=== PATIENT | female | born 1945 | race Caucasian/White ===

== ENCOUNTER 2023-11-11 12:28 | Observation (INO) ==
--- NOTE | 2023-11-11 12:51 | ED.PDOC ---
General ED Provider: Dr. PABLO MAS MD Chief Complaint: Urinary Problem Stated Complaint: Patient with a history of hypertension complains of acute outside the past several days of frequency, urgency, urinary incontinence, confusion family further states that patient has had increased confusion the past week. Patient was recently placed on rehabilitation facility for 2 weeks with had no improvement after arrival to home. Patient denies headache, chest pain, diaphoresis, palpitations, nausea, vomiting, diarrhea. Patient is active level confined to wheelchair due to severe scoliosis Time Seen by Provider: 11/11/23 12:47 Mode of Arrival: Wheelchair Information Source: Patient and Family Primary Care Provider: MACO RAO Nursing and Triage Documentation Reviewed and Agree: Yes What is Opioid Naive?: *Opioid Naive implies the patient is not already taking opioids or not chronically receiving opioids on a daily basis. *PRN dosing is not "usually" associated with tolerance. *Patients are at higher risk of over-sedation and aspiration. What is Opioid Tolerant?: *Opioid Tolerance implies less than the expected response to an opioid. *Acquired tolerance is defined by the patient taking 60mg of oral morphine daily (or equianalgesic dose of another opioid) for 1 week or more. *Often associated with chronic pain. *May take more than usual dose to achieve desired pain control. 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) Stroke I63.9 - Cerebral infarction, unspecified (ICD-10) Female Reproductive History Menstrual Hx Hysterectomy: No Hx Tubal Ligation: No Physical Exam Physical Exam Appearance: Reports Well-appearing Ill-appearing: None Pain Distress: None Eyes: Reports SHERMAN, EOMI and Conjunctiva clear ENT: Reports Ears normal, Nose normal and Oropharynx normal Neck: Supple Respiratory: Reports Airway patent, Breath sounds clear and Breath sounds equal Cardiovascular: Reports RRR, Pulses normal, No rub and No murmur GI/: Reports Soft, Nontender, No masses and Bowel sounds normal Musculoskeletal: Reports Normal strength, ROM intact, No edema and No calf tenderness Skin: Reports Warm, Dry and Normal color Neurological: Reports Sensation intact, Motor intact, Reflexes intact, Cranial nerves intact, Alert and Oriented (Oriented x 2) Psychiatric: Reports Mood appropriate and Other (Patient is a very flat affect, appears withdrawn.) Critical Care Note Critical Care Note Total Critical Care Time (mins): 0 Course Course 11/11/23 13:20 11/11/23 13:20 Orders, Labs, Meds: Lab Review 11/11/23 13:20 WBC 9.42 RBC 4.55 Hgb 14.3 Hct 43.1 MCV 94.7 MCH 31.4 H MCHC 33.2 RDW Coeff of Manolo 13.8 Plt Count 156 Immature Gran % (Auto) 0.2 Neut % (Auto) 74.3 Lymph % (Auto) 17.3 [place] % (Auto) 7.4 Eos % (Auto) 0.5 Baso % (Auto) 0.3 Neut # (Auto) 7.0 H Lymph # (Auto) 1.6 [place] # (Auto) 0.7 Eos # (Auto) 0.1 Baso # (Auto) 0.0 Immature Gran # (Auto) 0.0 Sodium 141.9 Potassium 3.66 Chloride 104.6 Carbon Dioxide 29.8 Anion Gap 11.16 BUN 11.9 Creatinine 0.79 Estimated GFR (MDRD) 70.00 BUN/Creatinine Ratio 15.06 Glucose 132.7 H Calcium 9.45 Magnesium 1.74 Total Bilirubin 0.80 AST 49.8 H ALT 31.6 Alkaline Phosphatase 100.7 Troponin I < 0.012 Total Protein 7.59 Albumin 4.51 Globulin 3.08 Albumin/Globulin Ratio 1.46 Urine Color Yellow Urine Clarity Clear Urine pH 7.0 Ur Specific [place] 1.020 Urine Protein 1+ H Urine Glucose (UA) Negative Urine Ketones 1+ H Urine Blood Trace-intact H Urine Nitrite Negative Urine Bilirubin 1+ H Urine Urobilinogen 0.2 Ur Leukocyte Esterase 2+ H Urine Microscopic RBC 0-2 Urine Microscopic WBC 5-10 Ur Squamous Epith Cells 2-5 SARS CoV-2 RNA Rapid LINDSAY Negative Orders Category Date Time Status EKG-(ED ONLY) Stat CARDIO 11/11/23 12:53 Completed Bicycle Repair Technician [ED GLOST TILE SHADER APPLIED] .ONCE EMERGENCY 11/11/23 12:53 Active BLOOD CULTURE (ED ONLY) Stat LAB 11/11/23 14:02 Ordered CBC W/ AUTO DIFF Stat LAB 11/11/23 13:20 Completed CMP [COMPREHENSIVE METABOLIC PANEL] Stat LAB 11/11/23 13:20 Completed COVID [SARS COV-2 RNA RAPID LINDSAY] Stat LAB 11/11/23 13:20 Completed MAGNESIUM Stat LAB 11/11/23 13:20 Completed TROPONIN I Stat LAB 11/11/23 13:20 Completed URINALYSIS C & S IF INDICATED Stat LAB 11/11/23 13:20 Completed URINE CULTURE Stat LAB 11/11/23 13:36 Received Ceftriaxone/D5w 1 gm Premix [Rocephin 1 gm/50 ml D5w] Meds 11/11/23 13:37 Discontinued 1 gm in 50 ml IV ONCE Sodium Chloride 0.9% [Sodium Chloride] 1,000 ml Meds 11/11/23 12:51 Discontinued IV 500 mls/hr CHEST, 1V AP ONLY Stat RADS 11/11/23 12:[address] HEAD W/O CONTRAST Stat RADS 11/11/23 12:51 Completed Medications Discontinued Medications Generic Name Dose Route Start Last Admin Trade Name Freq PRN Reason Stop Dose Admin Sodium Chloride 1,000 mls @ 500 mls/hr 11/11/23 12:51 11/11/23 13:42 Sodium Chloride IV 11/11/23 14:50 500 mls/hr .Q2H ONE Administration CEFTRIAXONE/D5W 1 GM PREMIX 1 gm in 50 mls @ 100 mls/hr 11/11/23 13:37 Rocephin 1 Gm/50 Ml D5w IV 11/11/23 14:06 ONCE ONE Vital Signs: Temp Pulse Resp BP Pulse Ox 11/11/23 12:44 98.4 F 97 16 122/75 96 Physician Progress Note: History obtained from the patient was her family friend who is recent been released from a rehabilitation facility past 2 weeks has had no improvement has had confusion past week and onset of urinary frequency, urgency and incontinence. No history of fall, injury, headache, dizziness, chest pain, nausea, vomiting, fever. Patient given IV fluids with saline 1 L at 500 mill/hour Laboratory data CBC and CMP have been reviewed and often normal Urinalysis ketones 1+, leukocyte esterase 2+, WBCs 5-10. 1340-EKG interpretation by myself consistent with normal sinus rhythm rate of 84 negative normocephalic S wave changes noted inferiorly. There is no ectopy there is no prolongation of CO QT interval. After 2 sets of blood cultures patient administered Rocephin 1 g IV piggyback Portable chest x-ray interpretation by radiologist as no acute cardiopulmonary process The head CT scan without intravenous contrast interpretation per radiologist shows no acute intracranial abnormality Differential diagnosis: 1) confusion 2) urine tract infection 3) dehydration Discussed with Aneta Maldonado the hospitalist at 1500 For inpatient admission Discharge Plan Discharge Patient Disposition: ADMITTED INPATIENT Discharge Problem: Acute alteration in mental status, Acute dehydration Urinary tract infection Qualifiers: Urinary tract infection type: acute cystitis Hematuria presence: without hematuria Qualified Code(s): N30.00 - Acute cystitis without hematuria Prescriptions: No Action amlodipine 5 mg tablet 5 mg PO DAILY Patient Comments: TAKE 1 TABLET BY MOUTH EVERY DAY atorvastatin 40 mg tablet 40 mg PO BEDTIME Patient Comments: TAKE 1 TABLET BY MOUTH EVERY NIGHT AT BEDTIME hydrocodone-acetaminophen 7.5-325 mg tablet 1 tab PO DAILY PRN (Reason: pain) Patient Comments: TAKE 1 TABLET BY MOUTH EVERY DAY NEEDED montelukast 10 mg tablet 10 mg PO QPM Patient Comments: TAKE 1 TABLET BY MOUTH EVERY NIGHT pregabalin 100 mg capsule 100 mg PO TID Patient Comments: TAKE 1 CAPSULE BY MOUTH THREE TIMES DAILY sertraline 25 mg tablet 25 mg PO DAILY Patient Comments: TAKE 1 TABLET BY MOUTH DAILY Did you review [place] [facility] NURSE for ALL controlled substances?: Not Applicable ED Provider: PABLO MAS Condition: Stable Yang Coma Scale Yang Coma Scale Response Scores: Best Response = 15 Comatose Client = 8 or Less Totally Unresponsive = 3
[2023-11-11 13:23] LABS: BASOPHILS % (AUTO) 0.3 % (0.0-3.0); EOSINOPHILS # (AUTO) 0.1 K/ul (0.0-0.7); EOSINOPHILS % (AUTO) 0.5 % (0.0-7.0); HEMATOCRIT 43.1 % (37.0-47.0); HEMOGLOBIN 14.3 g/dl (12.0-16.0); IMMATURE GRANULOCYTE % (AUTO) 0.2 % (0.0-5.0); LYMPHOCYTES # (AUTO) 1.6 K/uL (0.60-3.4); LYMPHOCYTES % (AUTO) 17.3 (10.0-50.0); MEAN CORPUSCULAR HEMOGLOBIN 31.4 pg (27.0-31.0); MEAN CORPUSCULAR HGB CONC 33.2 (31.8-35.4); MEAN CORPUSCULAR VOLUME 94.7 fl (81.0-99.0); MONOCYTES # (AUTO) 0.7 K/uL (0.4-2.0); MONOCYTES % (AUTO) 7.4 (0-10); NEUTROPHILS % (AUTO) 74.3 % (42.2-75.2); PLATELET COUNT 156 10^3/uL (140-440); RDW COEFFICIENT OF VARIATION 13.8 % (11.6-14.8); RED BLOOD COUNT 4.55 10^6/ul (4.20-5.40); WHITE BLOOD COUNT 9.42 K/ul (4.6-10.2)
[2023-11-11 13:26] LABS: BILIRUBIN,URINE 1+ (NEGATIVE); CLARITY,URINE Clear (CLEAR); COLOR,URINE Yellow (YELLOW); GLUCOSE, URINE (UA) Negative (NEGATIVE); KETONES,URINE 1+ (NEGATIVE); LEUKOCYTE ESTERASE ,URINE 2+ (NEGATIVE); NITRITE,URINE Negative (NEGATIVE); PROTEIN,URINE 1+ (NEGATIVE); URINE, BLOOD Trace-intact (NEGATIVE); UROBILINOGEN,URINE 0.2 (0.2)
[2023-11-11 13:35] LABS: ALANINE AMINOTRANSFERASE 31.6 U/L (0-35); ALBUMIN 4.51 g/dL (3.5-5.0); ALKALINE PHOSPHATASE 100.7 U/L (53-141); ASPARTATE AMINO TRANSFERASE 49.8 U/L (14-36); BILIRUBIN,TOTAL 0.8 mg/dL (0.2-1.3); BLOOD UREA NITROGEN 11.9 mg/dL (7-17); CALCIUM 9.45 mg/dL (8.4-10.2); CARBON DIOXIDE 29.8 mmol/L (22-30.0); CHLORIDE 104.6 mmol/L (98-107); CREATININE 0.79 mg/dL (0.60-1.30); GLUCOSE 132.7 mg/dL (74-106); MAGNESIUM 1.74 mg/dL (1.6-2.3); POTASSIUM 3.66 mmol/L (3.5-5.1); SODIUM 141.9 mmol/L (134.5-145); TOTAL PROTEIN 7.59 g/dL (6.3-8.2); URINE RBC, MICROSCOPIC 0-2 (0-2)
[2023-11-11 13:37] LABS: SARS COV-2 RNA RAPID NAAT NEGATIVE (NEGATIVE)
[2023-11-11] MEDS: SODIUM CHLORIDE 1,000 ML IV ONE (13:42)
--- NOTE | 2023-11-11 14:28 | CT ---
EXAM: CT BRAIN HISTORY: Confusion TECHNIQUE: CT brain without intravenous contrast. 5-mm axial sections with Reformations. COMPARISON: None FINDINGS: The brain was unremarkable for age without evidence of hemorrhage or large vessel distribution rece nt ischemic infarction. There is no suggestion of acute hydrocephalus or subdural fluid collection. No mass or mass effect. Cranium has no acute finding. Mastoid processes are aerated. The visualiz ed paranasal sinuses are clear. IMPRESSION: No acute intracranial process. - - - - - All CT scans are performed using dose optimization techniques as appropriate to the performed exam an d include at least one of the following: Automated exposure control, adjustment of the mA and/or kV according t o size, and the use of iterative reconstruction technique.
--- NOTE | 2023-11-11 14:34 | DI ---
EXAMINATION: AP CHEST RADIOGRAPH. HISTORY: Cough COMPARISON: None available. FINDINGS: A right apical calcified granuloma is noted.No focal consolidation, pleural effusion or pneumothorax is identified. The cardiomediastinal silhouette is within normal limits. Thoracolumbar dextroscoliosis is noted. IMPRESSION: No acute cardiopulmonary findings.
[2023-11-11] MEDS: ROCEPHIN 1 GM/50 ML D5W 1 GM/50 ML BAG IV ONE (15:08)
[2023-11-11 16:12] VITALS: BMI 19.9
[2023-11-11] MEDS ORDERED: TYLENOL PO PRN (16:26)
[2023-11-11] MEDS: ZOFRAN 4 MG/2 ML IVP PRN (19:38)
[2023-11-11] MEDS: LIPITOR PO SCH (20:08)
[2023-11-11] MEDS: LYRICA PO SCH (20:08)
[2023-11-12] MEDS: NORCO 7.5-325 PO PRN (01:18)
[2023-11-12 05:10] LABS: BASOPHILS % (AUTO) 0.4 % (0.0-3.0); EOSINOPHILS # (AUTO) 0.2 K/ul (0.0-0.7); EOSINOPHILS % (AUTO) 3.4 % (0.0-7.0); HEMATOCRIT 34.7 % (37.0-47.0); HEMOGLOBIN 11.5 g/dl (12.0-16.0); IMMATURE GRANULOCYTE % (AUTO) 0.3 % (0.0-5.0); LYMPHOCYTES # (AUTO) 2.7 K/uL (0.60-3.4); MEAN CORPUSCULAR HEMOGLOBIN 31.6 pg (27.0-31.0); MEAN CORPUSCULAR HGB CONC 33.1 (31.8-35.4); MEAN CORPUSCULAR VOLUME 95.3 fl (81.0-99.0); MONOCYTES # (AUTO) 0.7 K/uL (0.4-2.0); MONOCYTES % (AUTO) 9.6 (0-10); NEUTROPHILS # (AUTO) 3.4 K/ul (2.0-6.9); NEUTROPHILS % (AUTO) 48.3 % (42.2-75.2); PLATELET COUNT 128 10^3/uL (140-440); RED BLOOD COUNT 3.64 10^6/ul (4.20-5.40)
[2023-11-12 05:22] LABS: ALANINE AMINOTRANSFERASE 23.3 U/L (0-35); ALBUMIN 3.28 g/dL (3.5-5.0); ALKALINE PHOSPHATASE 80.2 U/L (53-141); ASPARTATE AMINO TRANSFERASE 37.6 U/L (14-36); BILIRUBIN,TOTAL 0.51 mg/dL (0.2-1.3); BLOOD UREA NITROGEN 9.8 mg/dL (7-17); CALCIUM 8.49 mg/dL (8.4-10.2); CARBON DIOXIDE 30.5 mmol/L (22-30.0); CHLORIDE 107.6 mmol/L (98-107); CREATININE 0.78 mg/dL (0.60-1.30); GLUCOSE 88.6 mg/dL (74-106); POTASSIUM 3.17 mmol/L (3.5-5.1); SODIUM 140.8 mmol/L (134.5-145); TOTAL PROTEIN 5.8 g/dL (6.3-8.2)
[2023-11-12] MEDS: ZOLOFT PO SCH (08:55)
[2023-11-12] MEDS: ASPIRIN EC PO SCH (08:55)
[2023-11-12] MEDS: K-DUR PO ONE (08:55)
[2023-11-12] MEDS: ROCEPHIN 1 GM/50 ML D5W 1 GM/50 ML BAG IV SCH (08:56)
[2023-11-12 09:33] LABS: BILIRUBIN,URINE Negative (NEGATIVE); CLARITY,URINE Clear (CLEAR); COLOR,URINE Yellow (YELLOW); GLUCOSE, URINE (UA) Negative (NEGATIVE); KETONES,URINE Negative (NEGATIVE); LEUKOCYTE ESTERASE ,URINE Negative (NEGATIVE); NITRITE,URINE Negative (NEGATIVE); PH,URINE 6.5 (5-9); PROTEIN,URINE Negative (NEGATIVE); URINE, BLOOD Negative (NEGATIVE); UROBILINOGEN,URINE 0.2 (0.2)
--- NOTE | 2023-11-12 09:39 | PCM ---
Date of Service Date Seen by Provider: 11/12/23 Time Seen by Provider: 09:00 Admit Day/Time Admission Date: 11/11/23 Admission Time: 15:03 Reason for Admission Chief Complaint: ALTERED MENTAL STATUS, DEHYDRATION, UTI Hospital Provider Hospital Provider: KEEGAN REYES, [facility] Primary Care Physician Primary Care Physician: MACO RAO History of Present Illness History of Present Illness: 78 yo female presented to the ER with altered mental status and UTI symptoms. Patient was recently discharge from local SNF and has been at home. Per family report to ER staff patient was confused at home. Patient reports that she has had urinary frequency and some minor aches and pains but no other symptoms. Was nauseated during the night last night and required zofran. Denies fever, chills, urinary urgency or dysuria, or abdominal pain. UA was suspicious for UTI. Patient was started on rocephin and admitted to med/surg observation. This AM no WBC count elevation and urine culture showed suspicious for contaminant. Patient is A&Ox4. Case Discussed With Case Discussed With: Patient's case was discussed with the ER Physicians, Dr. Murphy. 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 (ICD-10) Stroke I63.9 - Cerebral infarction, unspecified (ICD-10) Family History Mother Colon cancer Social History Smoking and tobacco status: Never smoker Allergies Allergies Allergy/AdvReac Type Severity Reaction Status Date / Time No Known Allergies Allergy Unverified 02/20/23 13:23 Current Medications Home Medications atorvastatin 40 mg tablet 40 mg PO BEDTIME 02/20/23 [History Confirmed 11/11/23 Last Taken Unknown] hydrocodone 7.5 mg-acetaminophen 325 mg tablet 1 tab PO DAILY PRN pain 02/20/23 [History Confirmed 11/11/23 Last Taken Unknown] montelukast 10 mg tablet 10 mg PO QPM 02/20/23 [History Confirmed 11/11/23 Last Taken Unknown] pregabalin 100 mg capsule 100 mg PO TID 02/20/23 [History Confirmed 11/11/23 Last Taken Unknown] sertraline 25 mg tablet 25 mg PO DAILY 02/20/23 [History Confirmed 11/11/23 Last Taken Unknown] aspirin 81 mg tablet,delayed release (Hope Low Dose Aspirin) 81 mg PO DAILY 11/11/23 [History Confirmed 11/11/23 Last Taken Unknown] esomeprazole magnesium 40 mg capsule,delayed release 40 mg PO DAILY 11/11/23 [History Confirmed 11/11/23 Last Taken Unknown] Home Acetaminophen (Acetaminophen 325 Mg Tablet) 650 mg PO Q4H PRN PRN Reason: Mild Pain Hydrocodone Bitart/Acetaminophen (Hydrocodone Bit/Acetaminophen 7.5/325 Mg Tablet) 1 tab PO DAILY PRN PRN Reason: MODERATE PAIN Last Admin: 11/12/23 01:18 Dose: 1 tab Aspirin (Aspirin 81 Mg Tablet.) 81 mg PO DAILY [facility] Last Admin: 11/12/23 08:55 Dose: 81 mg Atorvastatin Calcium (Atorvastatin Calcium 20 Mg Tablet) 40 mg PO BEDTIME [facility] Last Admin: 11/11/23 20:08 Dose: 40 mg CEFTRIAXONE/D5W 1 GM PREMIX (Rocephin 1 Gm/50 Ml D5w) 1 gm in 50 mls @ 100 mls/hr IV DAILY [facility] Stop: 11/15/23 08:59 Last Admin: 11/12/23 08:56 Dose: 100 mls/hr Lactated Ringer's (Lactated Ringers) 1,000 mls @ 75 mls/hr IV .[id number] [facility] Ondansetron HCl (Ondansetron Hcl/Pf 4 Mg/2 Ml Sdv) 4 mg IVP Q6H PRN PRN Reason: Nausea / Vomiting Last Admin: 11/11/23 19:38 Dose: 4 mg Pregabalin (Pregabalin 50 Mg Capsule) 100 mg PO TID [facility] Last Admin: 11/12/23 08:55 Dose: 100 mg Sertraline HCl (Sertraline Hcl 50 Mg Tablet) 25 mg PO DAILY [facility] Last Admin: 11/12/23 08:55 Dose: 25 mg Sodium Chloride (0.9% Sodium Chloride 10 Ml Disp.Syrin) 1 syr IVF Q8HR [facility] Last Admin: 11/12/23 12:56 Dose: 1 syr Discontinued Medications Sodium Chloride (Sodium Chloride) 1,000 mls @ 500 mls/hr IV .Q2H ONE Stop: 11/11/23 14:50 Last Infusion: 11/11/23 16:00 Dose: Infused CEFTRIAXONE/D5W 1 GM PREMIX (Rocephin 1 Gm/50 Ml D5w) 1 gm in 50 mls @ 100 mls/hr IV ONCE ONE Stop: 11/11/23 14:06 Last Admin: 11/11/23 15:08 Dose: 100 mls/hr Potassium Chloride (Potassium Chloride 20 Meq Tab) 40 meq PO ONCE ONE Stop: 11/12/23 08:33 Last Admin: 11/12/23 08:55 Dose: 40 meq Opioid Naive vs. Tolerant Does Patient Take Opioids?: Yes Is Patient Opioid Naive?: No What is Opioid Naive?: *Opioid Naive implies the patient is not already taking opioids or not chronically receiving opioids on a daily basis. *PRN dosing is not "usually" associated with tolerance. *Patients are at higher risk of over-sedation and aspiration. Is Patient Opioid Tolerant?: No What is Opioid Tolerant?: *Opioid Tolerance implies less than the expected response to an opioid. *Acquired tolerance is defined by the patient taking 60mg of oral morphine daily (or equianalgesic dose of another opioid) for 1 week or more. *Often associated with chronic pain. *May take more than usual dose to achieve desired pain control. Review of Systems Constitutional: Reports No symptoms Head: Reports Normocephalic Eyes: Reports No symptoms Ears: Reports No symptoms Nose: Reports No symptoms Mouth: Reports No symptoms Throat: Reports No symptoms Cardiovascular: Reports No symptoms Respiratory: Reports No symptoms Gastrointestinal: Reports Nausea Genitourinary: Reports Frequency Musculoskeletal: Reports No symptoms Endocrine: Reports No symptoms Hematology: Reports No symptoms Immunology: Reports No symptoms Neurological: Reports No symptoms Psychiatric: Reports No symptoms Physical examination Most Recent Vital Signs: Most Recent Vital Signs Temperature 97.7 F 11/12/23 05:06 Temperature Source Temporal Artery Scan 11/12/23 05:06 Temperature Source Infrared 11/11/23 12:44 Pulse Rate 67 11/12/23 05:06 Respiratory Rate 18 11/12/23 05:06 Blood Pressure 156/69 H 11/12/23 05:06 Blood Pressure Mean 98 11/12/23 05:06 Blood Pressure Right Arm 181/80 11/11/23 15:58 Blood Pressure Location Left Arm 11/12/23 05:06 Blood Pressure Position Sitting 11/11/23 21:06 O2 Sat by Pulse Oximetry 95 11/12/23 05:06 Oxygen Delivery Method Room Air 11/12/23 08:00 Height 5 ft 4 in 11/11/23 15:58 Weight 116 lb 3 oz 11/11/23 15:58 Telemetry Type Remote Telemetry 11/12/23 07:00 Telemetry Monitoring Continues 11/12/23 07:00 Telemetry Heart Rate 84 11/12/23 07:00 EKG MD Interval 0.15 11/12/23 07:00 EKG QRS Interval 0.04 L 11/12/23 07:00 Telemetry Strip Reading SR with PVC's 11/12/23 07:00 Appearance: Positive No Apparent Distress and Alert and Oriented x3 Skin: Positive Warm, Good Turgor and Good Color HEENT: Positive Normocephalic, Atraumatic and PERRLA Neck: Positive Supple and Midline Trachea Chest/Lungs: Positive Symmetrical With Equal Breath Sounds, Clear to Auscultation Bilaterally and Good Air Movement all 4 Lung Garcia Heart: Positive RRR and Pulses Normal GI/: Positive Soft, Nontender, Bowel Sounds Normal and No Distention Musculoskeletal: Positive Not Examined Extremities: Positive Intact Peripheral Pulses, Stable Joints Without Laxity and Good ROM in All Joints Neurological: Positive Sensation Intact, Motor intact, Alert and Oriented Labs This Visit Labs This Visit: Labs This Visit 11/11/23 11/12/23 13:20 05:04 WBC 9.42 7.10 RBC 4.55 3.64 L Hgb 14.3 11.5 L Hct 43.1 34.7 L D MCV 94.7 95.3 MCH 31.4 H 31.6 H MCHC 33.2 33.1 RDW Coeff of Manolo 13.8 14.0 Plt Count 156 128 L Immature Gran % (Auto) 0.2 0.3 Neut % (Auto) 74.3 48.3 Lymph % (Auto) 17.3 38.0 [place] % (Auto) 7.4 9.6 Eos % (Auto) 0.5 3.4 Baso % (Auto) 0.3 0.4 Neut # (Auto) 7.0 H 3.4 Lymph # (Auto) 1.6 2.7 [place] # (Auto) 0.7 0.7 Eos # (Auto) 0.1 0.2 Baso # (Auto) 0.0 0.0 Immature Gran # (Auto) 0.0 0.0 Sodium 141.9 140.8 Potassium 3.66 3.17 L Chloride 104.6 107.6 H Carbon Dioxide 29.8 30.5 H Anion Gap 11.16 5.87 BUN 11.9 9.8 Creatinine 0.79 0.78 Estimated GFR (MDRD) 70.00 71.00 BUN/Creatinine Ratio 15.06 12.56 Glucose 132.7 H 88.6 Calcium 9.45 8.49 Magnesium 1.74 Total Bilirubin 0.80 0.51 AST 49.8 H 37.6 H ALT 31.6 23.3 Alkaline Phosphatase 100.7 80.2 Troponin I < 0.012 Total Protein 7.59 5.80 L Albumin 4.51 3.28 L Globulin 3.08 2.52 Albumin/Globulin Ratio 1.46 1.30 Urine Color Yellow Urine Clarity Clear Urine pH 7.0 Ur Specific [place] 1.020 Urine Protein 1+ H Urine Glucose (UA) Negative Urine Ketones 1+ H Urine Blood Trace-intact H Urine Nitrite Negative Urine Bilirubin 1+ H Urine Urobilinogen 0.2 Ur Leukocyte Esterase 2+ H Urine Microscopic RBC 0-2 Urine Microscopic WBC 5-10 Ur Squamous Epith Cells 2-5 SARS CoV-2 RNA Rapid LINDSAY Negative Microbiology This Visit 11/11/23 13:36 Urine,Random Urine Culture - Preliminary Imaging Imaging: EXAMINATION: AP CHEST RADIOGRAPH. FINDINGS: A right apical calcified granuloma is noted.No focal consolidation, pleural effusion or pneumothorax is identified. The cardiomediastinal silhouette is within normal limits. Thoracolumbar dextroscoliosis is noted. IMPRESSION: No acute cardiopulmonary findings. EXAM: CT BRAIN FINDINGS: The brain was unremarkable for age without evidence of hemorrhage or large vessel distribution recent ischemic infarction. There is no suggestion of acute hydrocephalus or subdural fluid collection. No mass or mass effect. Cranium has no acute finding. Mastoid processes are aerated. The visualized paranasal sinuses are clear. IMPRESSION: No acute intracranial process. Review Statement Review Statement: I have independently reviewed and interpreted the labs/EKGs/imaging that were ordered by the ER provider. I have reviewed all outside records that are available currently in our EMR including imaging/notes/labs from previous visits. Plan Plan: 1. UTI - urine culture suggestive of contaminate/recollect needed, new specimen sent this am that was negative, continue rocephin til tomorrow and stop. 2. Acute Metabolic Encephalopathy - resolved, avoid neurologically altering agents, monitor 3. Dehydration - minimal urine output, LR@75mL/hr 4. Hyperlipidemia - chronic, continue home medications 5. Chronic Back Pain - continue home medications DVT Prophylaxis: Ambulation Time Spent: Greater than 80 minutes spent with patient, 50% of the time spent with this patient was devoted to counseling and coordination of care. [facility]in minutes spent discussing advance care planning. Disposition: Admit to: Med/Surg Observation DNR Discussed Plan of Care with Dr. Tuyet Johnson. Medications Medication Orders: Medications Ordered Category Date Time Status 0.9 % Sodium Chloride [Saline Flush] Meds 11/11/23 21:00 Active 1 syr IVF Q8HR Acetaminophen [Tylenol] Meds 11/11/23 16:26 Active 650 mg PO Q4H PRN Aspirin [Aspirin EC] Meds 11/12/23 09:00 Active 81 mg PO DAILY Atorvastatin Calcium [Lipitor] Meds 11/11/23 21:00 Active 40 mg PO BEDTIME Ceftriaxone/D5w 1 gm Premix [Rocephin 1 gm/50 ml D5w] Meds 11/12/23 09:00 Active 1 gm in 50 ml IV DAILY Hydrocodone Bit/Acetaminophen [Leo 7.5-325] Meds 11/11/23 16:31 Active 1 tab PO DAILY PRN Ondansetron HCl/Pf [Zofran 4 mg/2 ml] Meds 11/11/23 16:26 Active 4 mg IVP Q6H PRN Pregabalin [Lyrica] Meds 11/11/23 21:00 Active 100 mg PO TID Sertraline HCl [Zoloft] Meds 11/12/23 09:00 Active 25 mg PO DAILY
[2023-11-12] MEDS: LACTATED RINGERS 1,000 ML IV SCH (15:10)
[2023-11-13 05:09] LABS: BASOPHILS % (AUTO) 0.7 % (0.0-3.0); EOSINOPHILS # (AUTO) 0.3 K/ul (0.0-0.7); EOSINOPHILS % (AUTO) 5.1 % (0.0-7.0); HEMATOCRIT 38.6 % (37.0-47.0); HEMOGLOBIN 12.5 g/dl (12.0-16.0); IMMATURE GRANULOCYTE % (AUTO) 0.2 % (0.0-5.0); LYMPHOCYTES # (AUTO) 2.4 K/uL (0.60-3.4); MEAN CORPUSCULAR HEMOGLOBIN 31.2 pg (27.0-31.0); MEAN CORPUSCULAR HGB CONC 32.4 (31.8-35.4); MEAN CORPUSCULAR VOLUME 96.3 fl (81.0-99.0); MONOCYTES # (AUTO) 0.6 K/uL (0.4-2.0); MONOCYTES % (AUTO) 9.4 (0-10); NEUTROPHILS # (AUTO) 2.7 K/ul (2.0-6.9); NEUTROPHILS % (AUTO) 44.6 % (42.2-75.2); PLATELET COUNT 129 10^3/uL (140-440); RDW COEFFICIENT OF VARIATION 14.4 % (11.6-14.8); RED BLOOD COUNT 4.01 10^6/ul (4.20-5.40); WHITE BLOOD COUNT 6.05 K/ul (4.6-10.2)
[2023-11-13 05:15] LABS: ALANINE AMINOTRANSFERASE 23.6 U/L (0-35); ALBUMIN 3.6 g/dL (3.5-5.0); ALKALINE PHOSPHATASE 80.3 U/L (53-141); ASPARTATE AMINO TRANSFERASE 36.1 U/L (14-36); BILIRUBIN,TOTAL 0.51 mg/dL (0.2-1.3); BLOOD UREA NITROGEN 10.8 mg/dL (7-17); CALCIUM 9.23 mg/dL (8.4-10.2); CARBON DIOXIDE 30.2 mmol/L (22-30.0); CHLORIDE 108.3 mmol/L (98-107); CREATININE 0.78 mg/dL (0.60-1.30); POTASSIUM 3.65 mmol/L (3.5-5.1); SODIUM 141.9 mmol/L (134.5-145); TOTAL PROTEIN 6.28 g/dL (6.3-8.2)
--- NOTE | 2023-11-13 09:04 | DCSUM ---
Admission Date Admission Date: 11/11/23 Discharge Date Discharge Date: 11/13/23 Admission Diagnosis Admission Diagnosis: 1. UTI 2. Acute Metabolic Encephalopathy 3. Dehydration 4. Hyperlipidemia 5. Chronic Back Pain Discharge Diagnosis Discharge Diagnosis: 1. UTI - Ruled out 2. Acute Metabolic Encephalopathy - Resolved 3. Dehydration - Resolved 4. Hyperlipidemia - Chronic, stable 5. Chronic Back Pain - Chronic, stable 6. Weakness/Debility - Continue PT/OT Hospital Provider Hospital Provider: KEEGAN REYES, [facility] [place] Primary Care Physician Primary Care Physician: MACO RAO Summary of History and Physical Summary of History and Physical: 78 yo female presented to the ER with altered mental status and UTI symptoms. Patient was recently discharge from local SNF and has been at home. Per family report to ER staff patient was confused at home. Patient reports that she has had urinary frequency and some minor aches and pains but no other symptoms. Was nauseated during the night last night and required zofran. Denies fever, chills, urinary urgency or dysuria, or abdominal pain. UA was suspicious for UTI. Patient was started on rocephin and admitted to med/surg observation. This AM no WBC count elevation and urine culture showed suspicious for contaminant. Patient is A&Ox4. Hospital Course Subjective: Urine culture completed and showed suspected contaminant. Patient denied all urinary symptoms except frequency. Repeat UA completed and negative. Rocephin discontinued. Yesterday, patient initially had minimal urine output. USG on repeat UA was high. LR started at 75mL/hr. Urine output increased and patient reports feeling better this am. She has had no episodes of confusion and has remained A&Ox4 during stay. Labs have remained within normal limits. Patient reported that she still feels weak and that she would benefit from rehab at group home and requested inpatient admission. Discussed extensively with her that she does not have a medical necessity to be admitted inpatient while in this facility. PT/OT completed consults and patient walked with min assist x 1. Patient currently lives at home with her son and has social support. Discussed that she would benefit from home health PT/OT to help with strengthening. Patient agreeable to this plan. Appearance: Pleasant, No Apparent Distress and Alert HEENT: MMM, Supple and No JVD CVS: No Murmur and No Rubs Abdomen: Soft, Non-Tender and No Distention Respiratory: No Dyspnea Extremities: No Edema Vital Signs: Most Recent Vital Signs Temperature 97.7 F 11/13/23 05:02 Temperature Source Temporal Artery Scan 11/13/23 05:02 Temperature Source Infrared 11/11/23 12:44 Pulse Rate 73 11/13/23 05:02 Respiratory Rate 18 11/13/23 05:02 Blood Pressure 163/82 H 11/13/23 05:02 Blood Pressure Mean 109 11/13/23 05:02 Blood Pressure Right Arm 181/80 11/11/23 15:58 Blood Pressure Location Left Arm 11/13/23 05:02 Blood Pressure Position Supine 11/13/23 05:02 O2 Sat by Pulse Oximetry 98 11/13/23 05:02 Oxygen Delivery Method Room Air 11/13/23 08:00 Height 5 ft 4 in 11/11/23 15:58 Weight 116 lb 3 oz 11/11/23 15:58 Telemetry Type Remote Telemetry 11/13/23 07:00 Telemetry Monitoring Continues 11/13/23 07:00 Telemetry Heart Rate 70 11/13/23 07:00 EKG NE Interval 0.18 11/13/23 07:00 EKG QRS Interval 0.08 11/13/23 07:00 Telemetry Strip Reading SR 11/13/23 07:00 Imaging: EXAMINATION: AP CHEST RADIOGRAPH. FINDINGS: A right apical calcified granuloma is noted.No focal consolidation, pleural e ffusion or pneumothorax is identified. The cardiomediastinal silhouette is within normal limits. Thoracolumbar dextroscoliosis is noted. IMPRESSION: No acute cardiopulmonary findings. EXAM: CT BRAIN FINDINGS: The brain was unremarkable for age without evidence of hemorrhage or large vessel distribution recent ischemic infarction. There is no suggestion of acute hydrocephalus or subdural fluid collection. No mass or mass effect. Cranium has no acute finding. Mastoid processes are aerated. The visualized paranasal sinuses are clear. IMPRESSION: No acute intracranial process. Lab Results Last 24 Hours: 11/13/23 11/12/23 04:45 09:21 WBC 6.05 RBC 4.01 L Hgb 12.5 Hct 38.6 MCV 96.3 MCH 31.2 H MCHC 32.4 RDW Coeff of Manolo 14.4 Plt Count 129 L Immature Gran % (Auto) 0.2 Neut % (Auto) 44.6 Lymph % (Auto) 40.0 [place] % (Auto) 9.4 Eos % (Auto) 5.1 Baso % (Auto) 0.7 Neut # (Auto) 2.7 Lymph # (Auto) 2.4 [place] # (Auto) 0.6 Eos # (Auto) 0.3 Baso # (Auto) 0.0 Immature Gran # (Auto) 0.0 Sodium 141.9 Potassium 3.65 Chloride 108.3 H Carbon Dioxide 30.2 H Anion Gap 7.05 BUN 10.8 Creatinine 0.78 Estimated GFR (MDRD) 71.00 BUN/Creatinine Ratio 13.84 Glucose 92.0 Calcium 9.23 Total Bilirubin 0.51 AST 36.1 H ALT 23.6 Alkaline Phosphatase 80.3 Total Protein 6.28 L Albumin 3.60 Globulin 2.68 Albumin/Globulin Ratio 1.34 Urine Color Yellow Urine Clarity Clear Urine pH 6.5 Ur Specific [place]idan >=1.030 Urine Protein Negative Urine Glucose (UA) Negative Urine Ketones Negative Urine Blood Negative Urine Nitrite Negative Urine Bilirubin Negative Urine Urobilinogen 0.2 Ur Leukocyte Esterase Negative Discharge Instructions Discharge Planning: Discharge Planning > 40 minutes If patient is discharged with left ventricular systolic dysfunction: NA Discharged with a beta alla? [] If no, why not? [] Discharged with an joselin/arb? [] If no, why not? [] Diagnosis: Dehydration Diet: Regular, drink plenty of water Activity: as tolerated, continue PT/OT Follow-up with PCP next week Discharge Medications: Medications at Discharge (Home Meds & RX) atorvastatin 40 mg tablet 40 mg PO BEDTIME 02/20/23 hydrocodone 7.5 mg-acetaminophen 325 mg tablet 1 tab PO DAILY PRN pain 02/20/23 montelukast 10 mg tablet 10 mg PO QPM 02/20/23 pregabalin 100 mg capsule 100 mg PO TID 02/20/23 sertraline 25 mg tablet 25 mg PO DAILY 02/20/23 aspirin 81 mg tablet,delayed release (Hope Low Dose Aspirin) 81 mg PO DAILY 11/11/23 esomeprazole magnesium 40 mg capsule,delayed release 40 mg PO DAILY 11/11/23 Discharge Plan Discharge Discharge Orders: Discharge Patient (ONCE); Ordered 11/13/23 Ordered By: SPENCER VUONG Activity Restrictions/Additional Instructions: Diagnosis: Dehydration Diet: Regular, drink plenty of water Activity: as tolerated, continue PT/OT Follow-up with PCP next week [facility]. At this time [facility] did not have availability and so [facility] was utilized. [facility] will be in contact with you to start Physical and Occupational therapy in your home. Should you need to contact them, their number is [phone]. Instructions: Dehydration (GEN) Patient Disposition: HOME WITH FAMILY CARE Prescriptions: Continued esomeprazole magnesium 40 mg capsule,delayed release(DR/EC) 40 mg PO DAILY aspirin [Hope Low Dose Aspirin] 81 mg tablet,delayed release (DR/EC) 81 mg PO DAILY atorvastatin 40 mg tablet 40 mg PO BEDTIME Patient Comments: TAKE 1 TABLET BY MOUTH EVERY NIGHT AT BEDTIME hydrocodone-acetaminophen 7.5-325 mg tablet 1 tab PO DAILY PRN (Reason: pain) Patient Comments: TAKE 1 TABLET BY MOUTH EVERY DAY NEEDED montelukast 10 mg tablet 10 mg PO QPM Patient Comments: TAKE 1 TABLET BY MOUTH EVERY NIGHT pregabalin 100 mg capsule 100 mg PO TID Patient Comments: TAKE 1 CAPSULE BY MOUTH THREE TIMES DAILY sertraline 25 mg tablet 25 mg PO DAILY Patient Comments: TAKE 1 TABLET BY MOUTH DAILY Did you review [place] AUDIOVISUAL AIDS TECHNICIAN for ALL controlled substances?: No Discussed opioids are addictive and Narcan is available by prescription or from pharmacy.: No Condition: Stable Referrals: MACO RAO MD [Primary Care Provider] - 11/19/23 2:30 pm
[2023-11-13 10:27] VITALS: RESP 16
[2023-11-13 14:16] VITALS: BP 158/79; PULSE 98; TEMP 98.2
== END 2023-11-13 17:45 | disposition home or self-care (01) ==
LOC: ED 12:28 → INTOOBSV 15:19 → MEDSURG B 15:19
PROVIDERS: ADMIT Hospitalist; ATTEND Nurse Practitioner Family
DX: Z79.899 Other long term (current) drug therapy; M41.9 Scoliosis, unspecified; R39.15 Urgency of urination; Z20.822 Contact with and (suspected) exposure to COVID-19; Z99.3 Dependence on wheelchair; M54.9 Dorsalgia, unspecified; G89.29 Other chronic pain; R32 Unspecified urinary incontinence; M62.81 Muscle weakness (generalized); Z51.81 Encounter for therapeutic drug level monitoring; G93.41 Metabolic encephalopathy; E86.0 Dehydration; R35.0 Frequency of micturition; E78.5 Hyperlipidemia, unspecified

== ENCOUNTER 2024-11-26 12:28 | Inpatient (IN) ==
--- NOTE | 2024-11-26 12:56 | DI ---
EXAM: SINGLE VIEW OF THE RIGHT SHOULDER HISTORY: Fall. COMPARISON: Chest x-ray 11/11/2023 FINDINGS: There is a displaced fracture of the proximal right humerus which is poorly visualized on single frontal view. The scapula and clavicle are normal. The soft tissues are normal. IMPRESSION: Displaced fracture of the right humerus. If further evaluation is clinically indicated, CT is recommended.
--- NOTE | 2024-11-26 12:57 | DI ---
EXAM: XR RIGHT ELBOW. HISTORY: Fall, pain. TECHNIQUE: 2 views. Frontal and lateral. COMPARISON: None. FINDINGS: Bones: No acute fracture. Joints: Normal alignment. Joint spaces are maintained. No effusion. Soft tissues: Unremarkable. Other: None. IMPRESSION: 1. No acute findings.
[2024-11-26] MEDS: NORCO 10-325 PO STA (13:05)
--- NOTE | 2024-11-26 13:24 | ED.PDOC ---
General [facility] ED Provider: Dr. CHUCKY ROQUE DO Chief Complaint: Fall Stated Complaint: 79-year-old female brought by EMS from a long term for evaluation of right arm pain. She states that she was trying to sit down in a chair but misjudged the distance resulting in sliding off the chair and getting her arm caught in a abducted position. She reports pain to the upper arm and to the elbow. Denies paresthesia or weakness. Denies any head injury or loss consciousness. No other acute complaints. Denies blood thinner use. History reviewed in chart Time Seen by Provider: 11/26/24 12:33 Information Source: Patient Nursing and Triage Documentation Reviewed and Agree: Yes Opioid Naive vs. Tolerant What is Opioid Naive?: *Opioid Naive implies the patient is not already taking opioids or not chronically receiving opioids on a daily basis. *PRN dosing is not "usually" associated with tolerance. *Patients are at higher risk of over-sedation and aspiration. What is Opioid Tolerant?: *Opioid Tolerance implies less than the expected response to an opioid. *Acquired tolerance is defined by the patient taking 60mg of oral morphine daily (or equianalgesic dose of another opioid) for 1 week or more. *Often associated with chronic pain. *May take more than usual dose to achieve desired pain control. Review of Systems Review Of Systems Constitutional: Reports No symptoms All Other Systems: Reviewed and Negative [facility] Medical History (Updated 11/26/24 @ 13:24 by CHUCKY ROQUE DO) Scoliosis M41.9 - Scoliosis, unspecified (ICD-10) Skin cancer of anterior chest C44.509 - Unspecified malignant neoplasm of skin of other part of trunk (ICD-10) GERD (gastroesophageal reflux disease) K21.9 - Gastro-esophageal reflux disease without esophagitis (ICD-10) Hypertension I10 - Essential (primary) hypertension (ICD-10) Perforated sigmoid colon K63.1 - Perforation of intestine (nontraumatic) (ICD-10) Colostomy in place Z93.3 - Colostomy status (ICD-10) Stroke I63.9 - Cerebral infarction, unspecified (ICD-10) Family History Mother Colon cancer Social History Smoking and tobacco status: Never smoker Surgical History (Updated 10/20/24 @ 13:06 by KELBY GOMEZ) History of partial surgical removal of colon Z90.49 - Acquired absence of other specified parts of digestive tract (ICD- 10) Female Reproductive History Menstrual Hx Hysterectomy: No Hx Tubal Ligation: No Physical Exam Physical Exam Appearance: Reports Well-appearing, No pain distress, Well-nourished and Other (GCS 15) Eyes: Reports SHERMAN, EOMI and Conjunctiva clear ENT: Reports Oropharynx normal Neck: Supple Respiratory: Reports Airway patent and Respirations nonlabored Cardiovascular: Reports RRR and Pulses normal Musculoskeletal: Reports Normal strength, ROM intact and Other (Tenderness to the proximal humerus and firm to palpation. The compartments are not taut nor do they have pain out of proportion. Ecchymosis present on the right elbow. No obvious deformity to the elbow. Clavicle is nontender with no deformity or crepitus as well as the AC joint) Skin: Reports Warm, Dry and Normal color Neurological: Reports Sensation intact, Motor intact, Alert and Oriented Psychiatric: Reports Affect appropriate and Mood appropriate Re-Evaluation Re-Evaluation Additional Comments: 79-year-old female presents to the ER with pain to the right arm after getting it caught when she misjudged sitting into a chair. Suspect proximal humerus fracture. This is demonstrated on single view x-ray. Other views were not obtained due to the discomfort and apparent diagnosis. Exam otherwise not consistent with acute neurovascular injury. No evidence of compartment syndrome or septic arthritis. Do not feel other emergent labs or imaging are necessary at this time. Will place in a sling and treat symptomatically. The patient has a standing hydrocodone prescription therefore we will not prescribe pain medication as she already has this at the facility. Follow-up with orthopedics for management Physician Progress Note Physician Progress Note: All EKGs and plain film imaging independently reviewed and interpreted by me unless stated otherwise. CTs interpreted by radiology unless otherwise stated. All pediatric patients are accompanied by parent or legal guardian as primary historian and/or validate patient report unless otherwise stated. Course Course Orders, Labs, Meds: Orders Category Date Time Status Hydrocodone Bit/Acetaminophen [Gore 10-325] Meds 11/26/24 12:33 Discontinued 1 tab PO ONCE STA ELBOW, RIGHT 2 VIEWS Stat RADS 11/26/24 12:33 Completed SHOULDER, RIGHT 1V Stat RADS 11/26/24 12:33 Completed Medications Discontinued Medications Generic Name Dose Route Start Last Admin Trade Name Freq PRN Reason Stop Dose Admin Hydrocodone Bitart/Acetaminophen 1 tab 11/26/24 12:33 11/26/24 13:05 Hydrocodone Bit/Acetaminophen 10/325 Mg Tablet PO 11/26/24 12:34 1 tab ONCE STA Administration Vital Signs: Temp Pulse Resp BP Pulse Ox 11/26/24 12:35 97.3 F L 85 16 162/73 H 96 Discharge Plan Discharge Patient Disposition: HOME SELF-CARE Discharge Problem: Fracture of proximal end of humerus Instructions: Proximal Humerus Fracture (ED) Prescriptions: No Action acetaminophen 500 mg capsule 500 mg PO Q6H PRN (Reason: fever or pain) aspirin [Adult Aspirin Regimen] 81 mg tablet,delayed release (DR/EC) 81 mg PO QDAY atorvastatin 40 mg tablet 40 mg PO QHS esomeprazole magnesium 40 mg capsule,delayed release(DR/EC) 40 mg PO QDAY fluticasone propionate [Children's Flonase Allergy Rlf] 50 mcg/actuation spray,suspension 2 spray intranasal QDAY Rx Instructions: administer into each nostril montelukast 10 mg tablet 10 mg PO QHS Centrum Silver Women 8 mg iron-400 mcg-50 mcg tablet 1 tab PO QDAY naloxone 4 mg/actuation spray,non-aerosol 1 spray intranasal Q2-3M PRN (Reason: opioid overdose) Rx Instructions: spray 1 dose into ONE nostril; alternate nostrils w each dose until help arr joe Gross (B.longum) 10 million cell capsule 10,000,000 cell PO QDAY sertraline 50 mg tablet 50 mg PO QDAY pregabalin 100 mg capsule 100 mg PO TID Qty: 90 0RF dorzolamide-timolol 22.3-6.8 mg/mL drops 1 drp ophthalmic (eye) ONCE amlodipine 10 mg tablet 10 mg PO QDAY lidocaine 5 % adhesive patch,medicated 1 patch topical QDAY Qty: 30 3RF Rx Instructions: leave on most painful area for up to 12 hrs hydrocodone-acetaminophen 7.5-325 mg tablet 1 tab PO Q8H PRN (Reason: pain) Qty: 90 0RF Did you review [place] SECURITY OPERATIONS ANALYST for ALL controlled substances?: Not Applicable Discussed opioids are addictive and Narcan is available by prescription or from pharmacy.: No Activity Restrictions/Additional Instructions: It is important for you to keep your arm in the sling at all times. This will aid in the alignment of the fracture. Follow-up with orthopedics in approximately 1 week for definitive management and recommendations. ED Provider: CHUCKY ROQUE Condition: Stable
[2024-11-26 14:05] LABS: IMMATURE GRANULOCYTE # (AUTO) 0.1 (0.0-1.0); IMMATURE GRANULOCYTE % (AUTO) 0.4 % (0.0-5.0); RDW COEFFICIENT OF VARIATION 13.9 % (11.6-14.8)
[2024-11-26 14:17] LABS: CREATININE 0.76 mg/dL (0.60-1.30)
--- NOTE | 2024-11-26 14:20 | DI ---
EXAM: CHEST RADIOGRAPH TECHNIQUE: Single frontal chest radiograph. HISTORY: Chest pain and shortness of breath. COMPARISON: 11/11/2023 chest x-ray. FINDINGS: Lungs are hyperinflated and hyperlucent. Biapical pleural thickening and/or scar. No nodule or mass rather consolidation. No free air below the diaphragm. Heart is upper limits of normal and similar. Mediastinum is normal and the airway is patent and midline. Overlapping structures upper lung on the left. There is no pleural effusion. There is no pneumothorax. No significant acute bony abnormality is seen. IMPRESSION: 1. Lungs are hyperinflated and hyperlucent but appear clear with mild chronic changes otherwise. Heart is at least upper limits of normal in size and similar. No other acute finding. Details, as above.
[2024-11-26] MEDS ORDERED: TYLENOL PO PRN (14:36)
[2024-11-26] MEDS ORDERED: ZOFRAN SDV IVP PRN (15:10)
[2024-11-26 15:11] VITALS: BMI 21.1
--- NOTE | 2024-11-26 15:13 | PCM ---
Date of Service Date Seen by Provider: 11/26/24 Time Seen by Provider: 15:00 Admit Day/Time Admission Date: 11/26/24 Admission Time: 14:45 Reason for Admission Chief Complaint: FX R HUMERUS, WEAKNESS Hospital Provider Hospital Provider: KEEGAN REYES, [facility] History of Present Illness History of Present Illness: 79 yo female with pmh of HTN, colostomy, stroke, and GERD presented to the ER from [facility] following a fall. States she was trying to sit down in her chair and nearly missed. Attempted to slide herself into the floor and landed on her R side. C/o of chronic back pain and R shoulder pain. Found to have displaced proximal right humerus fracture. White count mildly elevated. Rest of labs unremarkable at this time. Awaiting UA. Denies any other complaints other than pain to the R arm. Admitted to Med/Surg Observation. Case Discussed With Case Discussed With: Patient's case was discussed with the ER Physicians, Dr. Ferrer. [facility] Medical History Scoliosis M41.9 - Scoliosis, unspecified (ICD-10) Skin cancer of anterior chest C44.509 - Unspecified malignant neoplasm of skin of other part of trunk (ICD-10) GERD (gastroesophageal reflux disease) K21.9 - Gastro-esophageal reflux disease without esophagitis (ICD-10) Hypertension I10 - Essential (primary) hypertension (ICD-10) Perforated sigmoid colon K63.1 - Perforation of intestine (nontraumatic) (ICD-10) Colostomy in place Z93.3 - Colostomy status (ICD-10) Stroke I63.9 - Cerebral infarction, unspecified (ICD-10) Surgical History History of partial surgical removal of colon Z90.49 - Acquired absence of other specified parts of digestive tract (ICD- 10) Family History Mother Colon cancer Social History Smoking and tobacco status: Never smoker Allergies Allergies Allergy/AdvReac Type Severity Reaction Status Date / Time No Known Allergies Allergy Verified 11/26/24 12:34 Current Medications Home Medications Acetaminophen (Acetaminophen 325 Mg Tablet) 650 mg PO Q4H PRN PRN Reason: Mild Pain Methocarbamol (Methocarbamol 500 Mg Tablet) 500 mg PO TID PRN PRN Reason: Spasms Morphine Sulfate (Morphine Sulfate 2 Mg/Ml Syringe) 2 mg IVP Q6H PRN PRN Reason: MODERATE PAIN Ondansetron HCl (Ondansetron Hcl/Pf 4 Mg/2 Ml Sdv) 4 mg IVP Q6H PRN PRN Reason: Nausea / Vomiting Bifidobacterium longum 10 million cell capsule (Align (B.longum)) 10,000,000 cell PO QDAY 10/04/24 [History Confirmed 11/26/24] acetaminophen 500 mg capsule 500 mg PO Q6H PRN fever or pain 10/04/24 [History Confirmed 11/26/24] aspirin 81 mg tablet,delayed release (Adult Aspirin Regimen) 81 mg PO QDAY 10/04/24 [History Confirmed 11/26/24] atorvastatin 40 mg tablet 40 mg PO QHS 10/04/24 [History Confirmed 11/26/24] esomeprazole magnesium 40 mg capsule,delayed release 40 mg PO QDAY 10/04/24 [History Confirmed 11/26/24] fluticasone propionate 50 mcg/actuation nasal spray,suspension (Children's Flonase Allergy Relief) 2 spray intranasal QDAY 10/04/24 [History Confirmed 11/26/24] montelukast 10 mg tablet 10 mg PO QHS 10/04/24 [History Confirmed 11/26/24] afmnuoxm-bxaf-qpry 8 mg-folic 400 mcg-K 50 mcg-lutein 300 mcg tablet (Centrum Silver Women) 1 tab PO QDAY 10/04/24 [History Confirmed 11/26/24] naloxone 4 mg/actuation nasal spray 1 spray intranasal Q2-3M PRN opioid overdose 10/04/24 [History Confirmed 11/26/24] sertraline 50 mg tablet 50 mg PO QDAY 10/04/24 [History Confirmed 11/26/24] amlodipine 10 mg tablet 10 mg PO QDAY 10/20/24 [History Confirmed 11/26/24] lidocaine 5 % topical patch 1 patch topical QDAY #30 ea 10/20/24 [Rx Confirmed 11/26/24] hydrocodone 7.5 mg-acetaminophen 325 mg tablet 1 tab PO Q8H PRN pain #90 tabs 11/10/24 [Rx Confirmed 11/26/24] pregabalin 100 mg capsule 100 mg PO TID #90 caps 11/20/24 [Rx Confirmed 11/26] dorzolamide 22.3 mg-timolol 6.8 mg/mL eye drops 1 drp ophthalmic (eye) ONCE 11/26/24 [History Confirmed 11/26/24] Opioid Naive vs. Tolerant Does Patient Take Opioids?: Yes Is Patient Opioid Naive?: No What is Opioid Naive?: *Opioid Naive implies the patient is not already taking opioids or not chronically receiving opioids on a daily basis. *PRN dosing is not "usually" associated with tolerance. *Patients are at higher risk of over-sedation and aspiration. Is Patient Opioid Tolerant?: No What is Opioid Tolerant?: *Opioid Tolerance implies less than the expected response to an opioid. *Acquired tolerance is defined by the patient taking 60mg of oral morphine daily (or equianalgesic dose of another opioid) for 1 week or more. *Often associated with chronic pain. *May take more than usual dose to achieve desired pain control. Review of Systems Constitutional: Reports No symptoms and Weakness; Denies Fever Head: Reports Normocephalic Eyes: Reports No symptoms Ears: Reports No symptoms Nose: Reports No symptoms Mouth: Reports No symptoms Throat: Reports No symptoms Cardiovascular: Reports No symptoms Respiratory: Reports No symptoms Gastrointestinal: Reports No symptoms Genitourinary: Reports No Symptoms Musculoskeletal: Reports Other (R arm pain) Endocrine: Reports No symptoms Hematology: Reports No symptoms Immunology: Reports No symptoms Neurological: Reports No symptoms Psychiatric: Reports No symptoms Physical examination Most Recent Vital Signs: Most Recent Vital Signs Temperature 97.1 F L 11/26/24 14:51 Temperature Source Temporal Artery Scan 11/26/24 14:51 Temperature Source Infrared 11/26/24 12:35 Pulse Rate 87 11/26/24 14:51 Respiratory Rate 16 11/26/24 14:51 Blood Pressure 162/73 H 11/26/24 12:35 Blood Pressure Left Arm 199/91 11/26/24 14:51 Blood Pressure Position Supine 11/26/24 14:51 O2 Sat by Pulse Oximetry 98 11/26/24 14:51 Oxygen Delivery Method Room Air 11/26/24 14:58 Height 5 ft 4 in 11/26/24 14:51 Weight 55.8 kg 11/26/24 14:51 Telemetry Heart Rate 88 11/13/23 13:00 Appearance: Positive No Apparent Distress, Alert and Oriented x3 and Thin Skin: Positive Warm, Good Turgor and Good Color HEENT: Positive Normocephalic and PERRLA Neck: Positive Supple and Midline Trachea Chest/Lungs: Positive Symmetrical With Equal Breath Sounds, Clear to Auscultation Bilaterally and Good Air Movement all 4 Lung Garcia; Negative Rales, Rhonci or Wheezes Heart: Positive RRR, Pulses Normal, No S3 Auscultated and No S4 Auscultated; Negative Irregular Rhythm, Tachycardia or Bracycardia GI/: Positive Soft, Nontender, Bowel Sounds Normal, No Distention and Other (colostomy in place) Musculoskeletal: Positive Tenderness (R upper arm with mild ecchymosis to anterior portion, sling intact) Extremities: Positive Edema (mild to R upper arm), Intact Peripheral Pulses and Stable Joints Without Laxity Neurological: Positive Sensation Intact, Motor intact, Reflexes Intact, Alert, Oriented and Muscle Strength 5/5 in Upper and Lower Extremities Bilaterally (weakness to R arm) Psychiatric: Positive Oriented x4 and Appropriate Mood Labs This Visit Labs This Visit: Labs This Visit 11/26/24 14:04 WBC 13.18 H RBC 4.25 Hgb 13.3 Hct 40.7 MCV 95.8 MCH 31.3 H MCHC 32.7 RDW Coeff of Manolo 13.9 Plt Count 151 Immature Gran % (Auto) 0.4 Neut % (Auto) 73.8 Lymph % (Auto) 17.6 [place] % (Auto) 7.3 Eos % (Auto) 0.5 Baso % (Auto) 0.4 Neut # (Auto) 9.7 H Lymph # (Auto) 2.3 [place] # (Auto) 1.0 Eos # (Auto) 0.1 Baso # (Auto) 0.1 Immature Gran # (Auto) 0.1 Sodium 142.5 Potassium 3.65 Chloride 101.7 Carbon Dioxide 32.3 H Anion Gap 12.15 BUN 14.6 Creatinine 0.76 Estimated GFR (MDRD) 73.00 BUN/Creatinine Ratio 19.21 Glucose 106.0 Calcium 9.12 Total Bilirubin 0.88 AST 36.2 H ALT 25.4 Alkaline Phosphatase 115.4 Total Protein 7.73 Albumin 4.11 Globulin 3.62 Albumin/Globulin Ratio 1.13 Imaging Imaging: EXAM: CHEST RADIOGRAPH TECHNIQUE: Single frontal chest radiograph. HISTORY: Chest pain and shortness of breath. COMPARISON: 11/11/2023 chest x-ray. FINDINGS: Lungs are hyperinflated and hyperlucent. Biapical pleural thickening and/or scar. No nodule or mass rather consolidation. No free air below the diaphragm. Heart is upper limits of normal and similar. Mediastinum is normal and the airway is patent and midline. Overlapping structures upper lung on the left. There is no pleural effusion. There is no pneumothorax. No significant acute bony abnormality is seen. IMPRESSION: 1. Lungs are hyperinflated and hyperlucent but appear clear with mild chronic changes otherwise. Heart is at least upper limits of normal in size and similar. No other acute finding. Details, as above. EXAM: SINGLE VIEW OF THE RIGHT SHOULDER HISTORY: Fall. COMPARISON: Chest x-ray 11/11/2023 FINDINGS: There is a displaced fracture of the proximal right humerus which is poorly visualized on single frontal view. The scapula and clavicle are normal. The soft tissues are normal. IMPRESSION: Displaced fracture of the right humerus. If further evaluation is clinically indicated, CT is recommended. EXAM: XR RIGHT ELBOW. HISTORY: Fall, pain. TECHNIQUE: 2 views. Frontal and lateral. COMPARISON: None. FINDINGS: Bones: No acute fracture. Joints: Normal alignment. Joint spaces are maintained. No effusion. Soft tissues: Unremarkable. Other: None. IMPRESSION: 1. No acute findings. Review Statement Review Statement: I have independently reviewed and interpreted the labs/EKGs/imaging that were ordered by the ER provider. I have reviewed all outside records that are available currently in our EMR including imaging/notes/labs from previous visits. Plan Plan: 1. Intractable Pain secondary to R displaced proximal humerus fracture - morphine 2 mg IVP Q6H, norco 7.5/325 mg every 8 hours prn, robaxin 500 mg tid prn 2. R displaced proximal humerus fracture - sling, NWB, will need jamie-walker and orthopedic follow-up upon discharge, pt/ot consult 3. Leukocytosis - mild, could be reactive, no reported fever or s/sx of infection, chest xray negative, UA ordered 4. HTN - chronic, continue home medications 5. GERD - chronic, continue home medications DVT Prophylaxis: Ambulation Time Spent: Greater than 80 minutes spent with patient, 50% of the time spent with this patient was devoted to counseling and coordination of care. Advanced Care Plannin minutes spent discussing advance care planning. Disposition: Due to patient have ostomy and fracture in non-dominant hand, unsure if patient will be able to safely return to prior level of functioning. PT/OT consults ordered. Admit to: Med/Surg Observation DNI, CPR only Discussed Plan of Care with Dr. Tuyet Johnson. Medications Medication Orders: Medications Ordered Category Date Time Status Acetaminophen [Tylenol] Meds 11/26/24 14:36 Active 650 mg PO Q4H PRN Methocarbamol [Robaxin] Meds 11/26/24 14:36 Active 500 mg PO TID PRN Morphine Sulfate [Morphine 2 mg/ml Syringe] Meds 11/26/24 15:10 Ordered 2 mg IVP Q6H PRN Ondansetron HCl/Pf [Zofran Sdv] Meds 11/26/24 15:10 Ordered 4 mg IVP Q6H PRN
[2024-11-26] MEDS ORDERED: LIDODERM 5 % PATCH TP SCH (15:30)
[2024-11-26] MEDS: LYRICA PO SCH (16:59)
[2024-11-26] MEDS: SINGULAIR PO SCH (16:59)
[2024-11-26] MEDS: MORPHINE 2 MG/ML SYRINGE IVP PRN (16:59)
[2024-11-26] MEDS: FLORASTOR PO SCH (20:35)
[2024-11-26] MEDS: LIPITOR PO SCH (20:35)
[2024-11-26] MEDS: COSOPT EACHEYE SCH (20:35)
[2024-11-26] MEDS: NORCO 7.5-325 PO PRN (22:02)
[2024-11-26] MEDS: ROBAXIN PO PRN (22:02)
[2024-11-27] MEDS: PROTONIX PO SCH (05:05)
[2024-11-27 05:06] LABS: IMMATURE GRANULOCYTE # (AUTO) 0.0 (0.0-1.0); IMMATURE GRANULOCYTE % (AUTO) 0.1 % (0.0-5.0); RDW COEFFICIENT OF VARIATION 13.9 % (11.6-14.8)
[2024-11-27 05:16] LABS: CREATININE 0.78 mg/dL (0.60-1.30)
[2024-11-27 05:18] LABS: GLUCOSE, URINE (UA) Negative (NEGATIVE); LEUKOCYTE ESTERASE ,URINE Negative (NEGATIVE); URINE, BLOOD Negative (NEGATIVE)
[2024-11-27] MEDS: LIDODERM 5 % PATCH TP SCH (08:43)
[2024-11-27] MEDS: FLONASE NAS SCH (08:43)
[2024-11-27] MEDS: ZOLOFT PO SCH (08:44)
[2024-11-27] MEDS: K-DUR PO ONE (08:44)
[2024-11-27] MEDS: ASPIRIN EC PO SCH (08:44)
[2024-11-27] MEDS: NORVASC PO SCH (08:44)
[2024-11-27] MEDS ORDERED: [UNRECOGNIZED DRUG - OTHER] PO SCH (09:00)
--- NOTE | 2024-11-27 09:16 | PCM.PROG ---
Date/Time Seen Date Seen by Provider: 11/27/24 Time Seen by Provider: 08:30 Provider [facility] Chief Complaint Chief Complaint: FX R HUMERUS, WEAKNESS Subjective Subjective: Pain continues. Requiring morphine at times. States muscle relaxer is providing relief. Unable to lift R leg of off bed this am. Reporting pain in hip area. Did not have pain yesterday. No obvious shortening. Objective Appearance: Positive No Apparent Distress and Alert and Oriented x3 Chest/Lungs: Positive Symmetrical With Equal Breath Sounds, Clear to Auscultation Bilaterally and Good Air Movement all 4 Lung Garcia; Negative Rales, Rhonci or Wheezes Heart: Positive RRR and Pulses Normal GI/: Positive Soft, Nontender, Bowel Sounds Normal and No Distention Musculoskeletal: Positive Tenderness (R hip and R upper arm, bruising to R upper arm with mild edema, neurovascularly intact) and Not Examined Neurological: Positive Sensation Intact, Motor intact, Reflexes Intact, Alert, Oriented and Other (generalized weakness) Vital Signs Vital Signs: Vital Signs: Last 24 Hours 11/26/24 12:35 11/26/24 14:51 11/26/24 14:51 Temperature 97.3 F L 97.1 F L Temperature Source Infrared Temporal Artery Scan Pulse Rate 85 87 Respiratory Rate 16 16 Blood Pressure 162/73 H Blood Pressure Mean Blood Pressure Left Arm 199/91 Blood Pressure Location Blood Pressure Position Supine O2 Sat by Pulse Oximetry 96 98 Oxygen Delivery Method Room Air Room Air Height 5 ft 4 in 5 ft 4 in Weight 57.4 kg 55.8 kg 11/26/24 14:58 11/26/24 15:37 11/26/24 17:00 Temperature Temperature Source Pulse Rate Respiratory Rate Blood Pressure Blood Pressure Mean Blood Pressure Left Arm Blood Pressure Location Blood Pressure Position O2 Sat by Pulse Oximetry Oxygen Delivery Method Room Air Room Air Room Air Height Weight 11/26/24 18:00 11/26/24 18:00 11/26/24 19:00 Temperature 97.3 F L Temperature Source Temporal Artery Scan Pulse Rate 87 Respiratory Rate 16 Blood Pressure 157/74 H Blood Pressure Mean 101 Blood Pressure Left Arm Blood Pressure Location Left Arm Blood Pressure Position Supine O2 Sat by Pulse Oximetry 94 L Oxygen Delivery Method Room Air Room Air Room Air Height Weight 11/26/24 19:55 11/26/24 19:56 11/26/24 20:59 Temperature 98 F Temperature Source Temporal Artery Scan Pulse Rate 79 Respiratory Rate 16 Blood Pressure 146/72 H Blood Pressure Mean 96 Blood Pressure Left Arm Blood Pressure Location Left Arm Blood Pressure Position Supine O2 Sat by Pulse Oximetry 94 L Oxygen Delivery Method Room Air Room Air Room Air Height Weight 11/26/24 21:00 11/26/24 22:00 11/26/24 23:00 Temperature Temperature Source Pulse Rate Respiratory Rate Blood Pressure Blood Pressure Mean Blood Pressure Left Arm Blood Pressure Location Blood Pressure Position O2 Sat by Pulse Oximetry Oxygen Delivery Method Room Air Room Air Room Air Height Weight 11/27/24 00:00 11/27/24 01:00 11/27/24 01:39 Temperature 98.6 F Temperature Source Temporal Artery Scan Pulse Rate 60 Respiratory Rate 18 Blood Pressure 122/58 L Blood Pressure Mean 79 Blood Pressure Left Arm Blood Pressure Location Left Arm Blood Pressure Position Supine O2 Sat by Pulse Oximetry 94 L Oxygen Delivery Method Room Air Room Air Room Air Height Weight 11/27/24 02:00 11/27/24 03:00 11/27/24 04:00 Temperature Temperature Source Pulse Rate Respiratory Rate Blood Pressure Blood Pressure Mean Blood Pressure Left Arm Blood Pressure Location Blood Pressure Position O2 Sat by Pulse Oximetry Oxygen Delivery Method Room Air Room Air Room Air Height Weight 11/27/24 04:00 11/27/24 05:00 11/27/24 05:10 Temperature 98.9 F Temperature Source Temporal Artery Scan Pulse Rate 73 Respiratory Rate 14 Blood Pressure 135/75 Blood Pressure Mean 95 Blood Pressure Left Arm Blood Pressure Location Left Arm Blood Pressure Position Supine O2 Sat by Pulse Oximetry 94 L Oxygen Delivery Method Room Air Room Air Room Air Height Weight 11/27/24 06:00 11/27/24 07:00 11/27/24 08:00 Temperature Temperature Source Pulse Rate Respiratory Rate Blood Pressure Blood Pressure Mean Blood Pressure Left Arm Blood Pressure Location Blood Pressure Position O2 Sat by Pulse Oximetry Oxygen Delivery Method Room Air Room Air Room Air Height Weight 11/27/24 08:11 Temperature Temperature Source Pulse Rate Respiratory Rate Blood Pressure Blood Pressure Mean Blood Pressure Left Arm Blood Pressure Location Blood Pressure Position O2 Sat by Pulse Oximetry Oxygen Delivery Method Room Air Height Weight Lab Results Lab Results: Lab Results: Last 24 Hours 11/27/24 11/26/24 11/26/24 04:40 14:04 04:49 WBC 7.81 D 13.18 H RBC 3.96 L 4.25 Hgb 12.3 13.3 Hct 38.3 40.7 MCV 96.7 95.8 MCH 31.1 H 31.3 H MCHC 32.1 32.7 RDW Coeff of Manolo 13.9 13.9 Plt Count 132 L 151 Immature Gran % (Auto) 0.1 0.4 Neut % (Auto) 58.1 73.8 Lymph % (Auto) 27.9 17.6 [place] % (Auto) 10.8 H 7.3 Eos % (Auto) 2.7 0.5 Baso % (Auto) 0.4 0.4 Neut # (Auto) 4.5 9.7 H Lymph # (Auto) 2.2 2.3 [place] # (Auto) 0.8 1.0 Eos # (Auto) 0.2 0.1 Baso # (Auto) 0.0 0.1 Immature Gran # (Auto) 0.0 0.1 Sodium 142.1 142.5 Potassium 3.33 L 3.65 Chloride 102.6 101.7 Carbon Dioxide 31.7 H 32.3 H Anion Gap 11.13 12.15 BUN 12.4 14.6 Creatinine 0.78 0.76 Estimated GFR (MDRD) 71.00 73.00 BUN/Creatinine Ratio 15.89 19.21 Glucose 95.9 106.0 Calcium 8.87 9.12 Total Bilirubin 0.98 0.88 AST 29.6 36.2 H ALT 20.9 25.4 Alkaline Phosphatase 93.0 115.4 Total Protein 6.53 7.73 Albumin 3.46 L 4.11 Globulin 3.07 3.62 Albumin/Globulin Ratio 1.12 1.13 Urine Color Yellow Urine Clarity Clear Urine pH 6.5 Ur Specific [place] 1.020 Urine Protein Negative Urine Glucose (UA) Negative Urine Ketones Trace H Urine Blood Negative Urine Nitrite Negative Urine Bilirubin Negative Urine Urobilinogen 0.2 Ur Leukocyte Esterase Negative Additional Comments Additional Comments: I have independently reviewed and interpreted the labs/EKGs/imaging ordered during this hospital stay. I have reviewed outside records that are available in our EMR that pertain to medical stay including imaging/notes/labs from previous visits. Active Medications Active Medications: Medications Generic Name Dose Route Start Last Admin Trade Name Freq PRN Reason Stop Dose Admin Acetaminophen 650 mg 11/26/24 14:36 Acetaminophen 325 Mg Tablet PO Q4H PRN Mild Pain Hydrocodone Bitart/Acetaminophen 1 tab 11/26/24 15:29 11/26/24 22:02 Hydrocodone Bit/Acetaminophen 7.5/325 Mg Tablet PO 1 tab Q6HR PRN Administration Pain Amlodipine Besylate 10 mg 11/27/24 09:00 11/27/24 08:44 Amlodipine Besylate 5 Mg Tablet PO 10 mg DAILY ANGELO Administration Aspirin 81 mg 11/27/24 07:30 11/27/24 08:44 Aspirin 81 Mg Tablet. PO 81 mg DAILYWM2 ANGELO Administration Atorvastatin Calcium 40 mg 11/26/24 21:00 11/26/24 20:35 Atorvastatin Calcium 20 Mg Tablet PO 40 mg BEDTIME ANGELO Administration Dorzolamide/Timolol 1 drop 11/26/24 21:00 11/27/24 08:43 Dorzolamide Hcl/Timolol Maleat Opth 10 Ml Mraia Luisa EACHEYE 1 drop BID ANGELO Administration Fluticasone Propionate 2 spray 11/27/24 09:00 11/27/24 08:43 Fluticasone Propionate 16 Gm Nasal [place] CARMELITA 2 spray DAILY ANGELO Administration Lidocaine 1 patch 11/27/24 09:00 11/27/24 08:43 Lidocaine 5% Patch TP 1 patch DAILY ANGELO Administration Methocarbamol 500 mg 11/26/24 14:36 11/26/24 22:02 Methocarbamol 500 Mg Tablet PO 500 mg TID PRN Administration Spasms Montelukast Sodium 10 mg 11/26/24 17:00 11/26/24 16:59 Montelukast Sodium 10 Mg Tablet PO 10 mg QPM ANGELO Administration Morphine Sulfate 2 mg 11/26/24 15:10 11/27/24 02:11 Morphine Sulfate 2 Mg/Ml Syringe IVP 2 mg Q6H PRN Administration MODERATE PAIN Ondansetron HCl 4 mg 11/26/24 15:10 Ondansetron Hcl/Pf 4 Mg/2 Ml Sdv IVP Q6H PRN Nausea / Vomiting Pantoprazole Sodium 40 mg 11/27/24 06:00 11/27/24 05:05 Pantoprazole Sodium 40 Mg Tablet. PO 40 mg QDAC2 ANGELO Administration Pregabalin 100 mg 11/26/24 16:00 11/27/24 08:44 Pregabalin 50 Mg Capsule PO 100 mg TID ANGELO Administration Saccharomyces Boulardii 250 mg 11/26/24 21:00 11/27/24 08:44 Lidya Hoyti 250 Mg Capsule PO 250 mg BID ANGELO Administration Sertraline HCl 50 mg 11/27/24 09:00 11/27/24 08:44 Sertraline Hcl 50 Mg Tablet PO 50 mg DAILY ANGELO Administration Plan Plan: 1. Intractable Pain secondary to R displaced proximal humerus fracture - morphine 2 mg IVP Q6H, norco 7.5/325 mg every 6 hours prn, robaxin 500 mg tid prn 2. R displaced proximal humerus fracture - sling, NWB, will need jamie-walker and orthopedic follow-up upon discharge, pt/ot consult 3. Leukocytosis - Resolved, likely reactive 4. HTN - chronic, continue home medications 5. GERD - chronic, continue home medications 6. R hip pain - x-rays ordered DVT Prophylaxis: Ambulation Time Spent: Greater than 80 minutes spent with patient, 50% of the time spent with this patient was devoted to counseling and coordination of care. Advanced Care Plannin minutes spent discussing advance care planning. Disposition: Due to patient have ostomy and fracture in non-dominant hand, unsure if patient will be able to safely return to prior level of functioning. PT/OT consults ordered. Patient requesting placement due to inability to care for self. Admit to IP today. Review Statement Review Statement: I have personally discussed and reviewed the patient's visit/currently labs/imaging/decision making with Dr. Johnson, my supervising attending. Greater that 50 minutes spent with patient, 50% of the time spent with this patient was devoted to counseling and coordination of care.
--- NOTE | 2024-11-27 10:17 | DI ---
EXAM: PELVIS AND RIGHT HIP RADIOGRAPH(S). 3 VIEWS. History: right hip pain Comparison: none IMPRESSION: No fracture or dislocation. No soft tissue abnormality or radiopaque foreign body. Mild degenerative changes in both hips.
--- NOTE | 2024-11-27 11:56 | RS.PTINEVL ---
Subjective Patient information Date of Evaluation: 11/27/24 Date of Arrival on Unit: 11/26/24 Admitted From:: Home ([facility]) Diagnosis: Displaced fx of R proximal humerus Living Arrangement Comments: lives at [facility] Home Environment: Apartment and Level/No stairs Medical History: Hypertension, CVA/TIA and Arthritis Medical History Comments:: GERD, chronic back pain, scoliosis LATEX ALLERGY?: No Surgical History: Colostomy Surgical History Comments:: partial colectomy, Medications: see chart Subjective Information/ Patient Comments:: pt states that she is tired. Level of function Abilities prior to this admission: States she normally only walks in her room and someone pushes her to the dining room on her rollator. pt states she gets some help with her ADL's Current Level of Function: Dependent Current Equipment Used at Home: rollator Pain Assessement Location Right Arm: Description: Sharp and Aching Pain Behavior: Moaning, Irritability and Facial Grimacing Pain Aggravating Factors: ADL's, Changing Position, Exercise/Activity and Standing Effects of Pain: pt also c/o pain in back and R hip. Interventions Objective Patient Orientation: Person and Place Current Interventions: Telemetry Observation: R UE in sling due to humerus fx Range of Motion ROM Right Upper Extremity AROM: Marked limitation (R shld not tested due to fracture, elbow limited due to pain.) Left Upper Extremity AROM: WFL's Right Lower Extremity AROM: WFL's Left Lower Extremity AROM: WFL's Muscle Strength Muscle Strength Right Upper Extremity: Severe Weakness (RUE not tested due to fx.) Left Upper Extremity: Moderate Weakness (grossly3/5 pt requires max encouragement to move LUE.) Right Lower Extremity: Moderate Weakness (grossly3/5 pt requires max encouragement to move RLE) Left Lower Extremity: Moderate Weakness (grossly3/5 pt requires max encouragement to move LLE.) Sensation Sensation Right Upper Extremity: Intact/Normal Left Upper Extremity: Intact/Normal Right Lower Extremity: Impaired Left Lower Extremity: Impaired Comments: pt reports n/t in B feet Palpation Palpation Findings: Tenderness (RUE, R hip, B feet ) Balance Sitting Balance and Reactions Static Sitting Balance: Poor Dynamic Sitting Balance: Poor Standing Balance and Reactions Static Standing Balance: Poor Dynamic Standing Balance: Poor Comments Balance Assessment Comments: pt requires min to mod assist to maintain static sitting balance, pt appears to give sub max effort with therapy Functional Mobility Bed Mobility Rolling R/L: Mod Assist and 1 person assist Supine to Sit: Mod Assist, 1 person assist and 2 person assist Transfers Sit to Stand: Mod Assist, Max Assist and 2 person assist Stand to Sit: Max Assist, 1 person assist and 2 person assist Stand Pivot Transfers: Max Assist, 1 person assist and 2 person assist Comments:: pt does not put weight through LUE with jamie walker. pt stands with flexed posture and took 2 shuffle steps and then stopped. Safety Awareness Safety Awareness: Poor LICHA INDEX SCORE: n/a Treatment time Units charged ADL: 1 (TA) Time with patient Length of Evaluation: 19 Total treatment time: 28 Patient Education Education Patient Education: Activity Modification and Education of Plan of Care Teaching Recipient: Patient Teaching Methods: Discussion Comments: Discussed with pt importance of putting forth more effort during bed mobility and transfers. Explained the more she helps the less it will hurt. Assessment Assessment Problem List:: Decreased level of function, Requires training/education, Decreased safety/Risk of falls, Weakness, Pain limits previous level of function and Cognitive status limits abilities Rehab Potential: Fair Further Therapy Indicated?: Yes Candidate for Swing Bed for Therapy Services?: Feel pt will require regional intermodal truck driver care for rehab. Evaluation Complexity: HISTORY: Medium, EXAM OF BODY SYSTEMS: Medium, CLINICAL P RESENTATION: Medium and CLINICAL DECISION MAKING: Medium Patient's Goal(s): Decrease R UE pain Short Term Goals GOAL #1: pt demonstrate rolling and scooting up in bed with min to mod x 1 Goal to be met by: 11/29/24 GOAL #2: Transfer sup to/from sit mod x 1 Goal to be met by: 11/29/24 GOAL #3: Transfer sit to/from stand mod x 1 Goal to be met by: 11/29/24 GOAL #4: Stand pivot bed to recliner with jamie walker with mod x 1 Goal to be met by: 11/29/24 GOAL #5: pt able to maintain static sitting balance with CGA Goal to be met by: 11/29/24 Crane Helper Goals GOAL #1: pt transfer sup to/from sit to/from stand min x1 Goal to be met by: 12/02/24 GOAL #2: pt amb 25ft with jamie walker with min to mod x 1-2. Goal to be met by: 12/02/24 GOAL #3: Stand pivot bed to recliner with min to mod x 1 Goal to be met by: 12/02/24 Plan Plan of Care: Therapeutic EX and Therapeutic Activity Other:: gait training Frequency of Treatment: 1-2 X day, as tolerated Duration of Treatment: 5days Anticipated Discharge Destination: [facility] Treatment Diagnosis (ICD 10 Codes): displaced fx R proximal humerus gait difficulty impaired balance R UE pain Has the Physician been added for Co-signature?: Yes
--- NOTE | 2024-11-27 16:26 | RS.OTINEVL ---
Subjective Patient information Date of Evaluation: 11/27/24 Date of Arrival on Unit: 11/26/24 Admitted From:: Home ([facility]) Diagnosis: R fractured humerus, weakness, dec. ADLS PRECAUTIONS: Fall risk Living Arrangement Comments: lives at [facility]. Pt is pushed on rollator to dining room. Home Environment: Apartment and Level/No stairs Medical History: Hypertension, CVA/TIA and Arthritis Medical History Comments:: GERD, chronic back pain, scoliosis LATEX ALLERGY?: No Surgical History: Colostomy Surgical History Comments:: partial colectomy, Medications: see chart Subjective Information/ Patient Comments:: "That's what my son says." "He thinks he knows everything." Level of function Prior to this admission, the patient could do the following:: Partially Dependent Ambulation Abilities prior to this admission: Pt was getting pushed to the dining wolff on her rollator. Current Level of Function: Partially Dependent Comments: Pt is very weak and does not try to do much for herself. Pt wants to rely on everyone else for help. Pt wants someone to feed her. Current Equipment Used at Home: rollator Pain Assessment Pain Side: right Pain Location Body Site: Shoulder Pain Aggravating Factors: ADL's, Changing Position and Sitting Pain Alleviating Factors: Medication, Exercise, Position Change and Lying Supine Interventions Objective Patient Orientation: Person, Place and Situation Observation: Sling to RUE. Pt appears to think she is not able to feed herself, wipe herself, or complete one arm ADLs. Interventions ROM Right Upper Extremity AROM: Marked limitation Left Upper Extremity AROM: Slight limitation Strength Right Upper Extremity: Severe Weakness Left Upper Extremity: Mild Weakness Sensation Right Upper Extremity: Intact/Normal Left Upper Extremity: Intact/Normal Balance Sitting Balance Static Sitting Balance: Poor Dynamic Sitting Balance: Poor Standing Balance Static Standing Balance: Poor Dynamic Standing Balance: Poor ADL Skills Self Feeding Self Feeding: Min Assist Grooming Grooming: Mod Assist Grooming Set-up: Sitting Bathing Bathing UE: Max Assist Bathing LE: Max Assist Bathing Set-up: Bedside Dressing Dressing UE: Max Assist Dressing LE: Mod Assist Toilet Management Toilet Hygiene: Max Assist Toilet Clothing Management: Max Assist Functional Mobility Bed Mobility Rolling R/L: Mod Assist Scooting: Max Assist Supine to Sit: Mod Assist and 2 person assist Sit to Supine: Max Assist and 2 person assist Transfers Sit to Stand: Max Assist and 2 person assist Stand Pivot Transfers: Max Assist and 2 person assist Ambulation Weight Bearing Status: FWB Assistive Device Used: Sahil Walker Assistance needed with Ambulation: Max Assist and 2 person assist Safety Awareness Safety Awareness: Poor LICHA INDEX SCORE: . Additional Treatment Performed Time with patient Length of Evaluation: 20 Total treatment time: 21 Activities Do you enjoy playing games?: No Would you be interested in leaving your room for activities?: No Would you enjoy group activities?: No Do you have difficulty with your vision?: No Patient Interests:: Watching Television and Visiting/Socializing Patient Education Patient Education: Education of diagnosis, Body/Joint mechanics, Home Exercise Program and Education of Plan of Care Teaching Recipient: Patient Teaching Methods: Discussion Assessment Problem List:: Decreased level of function, Requires training/education, Decreased safety/Risk of falls, Weakness and Pain limits previous level of function Rehab Potential: Fair Further Therapy Indicated?: Yes Evaluation Complexity: HISTORY: Medium, EXAM OF BODY SYSTEMS: Medium and CLINICAL DECISION MAKING: Medium Patient's Goal(s): To be able to go back to [facility]. Short Term Goals Goals GOAL 1: Pt to increase toilet transfers to Min A x 1. Goal to be met by: 12/01/24 GOAL 2: Pt to eat using her LUE with setup. Goal to be met by: 12/01/24 GOAL 3: Pt to increase toilet hygiene with LUE to be CGA. Goal to be met by: 12/01/24 GOAL 4: Pt to be able to complete one arm ADLS. Goal to be met by: 12/01/24 Shipping Support Clerk Goals GOAL 1: Pt to be CGA for Toilet transfers. Goal to be met by: 12/02/24 GOAL 2: Pt to be Setup for feeding self. Goal to be met by: 12/02/24 GOAL 3: Pt to be CGA for functional transfers. Goal to be met by: 12/02/24 Plan Plan of Care: Therapeutic EX, Therapeutic Activity and Self-Care/Home Management Modalities: Cold Pack/Cryotherapy Frequency of Treatment: 1-2 X day, as tolerated Duration of Treatment: 1 Week Anticipated Discharge Destination: [facility] Facility Treatment Diagnosis (ICD 10 Codes): R shoulder pain M25.512, Z74.1 Need for personal assistance with care, weakness R53.1 Has the Physician been added for Co-signature?: Yes
[2024-11-28 05:32] LABS: IMMATURE GRANULOCYTE # (AUTO) 0.0 (0.0-1.0); IMMATURE GRANULOCYTE % (AUTO) 0.3 % (0.0-5.0); RDW COEFFICIENT OF VARIATION 14.2 % (11.6-14.8)
[2024-11-28 05:48] LABS: CREATININE 0.99 mg/dL (0.60-1.30)
--- NOTE | 2024-11-28 09:46 | PCM.PROG ---
Date/Time Seen Date Seen by Provider: 11/28/24 Time Seen by Provider: 08:30 Provider [facility] Chief Complaint Chief Complaint: FX R HUMERUS, WEAKNESS Subjective Subjective: States pain is tolerable when not moving arm. Assisted RN with patient ambulating to bedside commode. Patient is currently max assistance x 2. Not making conscious effort to move extremities and requires frequent cueing and reassurance to move. Wanting staff to perform tasks for her such as feeding meals. Discussed importance of continuing to ambulate to avoid weakening of the lower extremities. Objective Appearance: Positive No Apparent Distress and Alert and Oriented x3 Chest/Lungs: Positive Symmetrical With Equal Breath Sounds, Clear to Auscultation Bilaterally and Good Air Movement all 4 Lung Garcia; Negative Rales, Rhonci or Wheezes Heart: Positive RRR and Pulses Normal; Negative Irregular Rhythm, Tachycardia or Bracycardia GI/: Positive Soft, Nontender, Bowel Sounds Normal and No Distention Musculoskeletal: Positive Tenderness (R arm with swelling and ecchymosis) Neurological: Positive Sensation Intact, Motor intact, Reflexes Intact, Alert, Oriented and Other (generalized weakness) Vital Signs Vital Signs: Vital Signs: Last 24 Hours 11/27/24 14:00 11/27/24 19:05 11/27/24 20:28 Temperature 98.4 F 98 F Temperature Source Temporal Artery Scan Temporal Artery Scan Pulse Rate 70 62 Respiratory Rate 16 18 Blood Pressure 140/68 129/69 Blood Pressure Mean 92 89 Blood Pressure Location Left Arm Left Arm Blood Pressure Position Supine Supine O2 Sat by Pulse Oximetry 95 95 Oxygen Delivery Method Room Air Room Air Room Air 11/28/24 05:23 Temperature 97.7 F Temperature Source Temporal Artery Scan Pulse Rate 74 Respiratory Rate 18 Blood Pressure 114/54 L Blood Pressure Mean 74 Blood Pressure Location Left Arm Blood Pressure Position Supine O2 Sat by Pulse Oximetry 95 Oxygen Delivery Method Room Air Lab Results Lab Results: Lab Results: Last 24 Hours 11/28/24 05:05 WBC 10.52 H RBC 3.93 L Hgb 12.1 Hct 38.0 MCV 96.7 MCH 30.8 MCHC 31.8 RDW Coeff of Manolo 14.2 Plt Count 140 Immature Gran % (Auto) 0.3 Neut % (Auto) 67.1 Lymph % (Auto) 20.6 [place] % (Auto) 9.7 Eos % (Auto) 1.9 Baso % (Auto) 0.4 Neut # (Auto) 7.1 H Lymph # (Auto) 2.2 [place] # (Auto) 1.0 Eos # (Auto) 0.2 Baso # (Auto) 0.0 Immature Gran # (Auto) 0.0 Sodium 140.2 Potassium 3.85 Chloride 103.4 Carbon Dioxide 27.8 Anion Gap 12.85 BUN 19.3 H Creatinine 0.99 Estimated GFR (MDRD) 54.00 BUN/Creatinine Ratio 19.49 Glucose 116.9 H Calcium 8.79 Total Bilirubin 0.97 AST 32.6 ALT 19.5 Alkaline Phosphatase 90.3 Total Protein 6.71 Albumin 3.57 Globulin 3.14 Albumin/Globulin Ratio 1.13 Additional Comments Additional Comments: I have independently reviewed and interpreted the labs/EKGs/imaging ordered during this hospital stay. I have reviewed outside records that are available in our EMR that pertain to medical stay including imaging/notes/labs from previous visits. Active Medications Active Medications: Medications Generic Name Dose Route Start Last Admin Trade Name Freq PRN Reason Stop Dose Admin Acetaminophen 650 mg 11/26/24 14:36 Acetaminophen 325 Mg Tablet PO Q4H PRN Mild Pain Hydrocodone Bitart/Acetaminophen 1 tab 11/26/24 15:29 11/28/24 04:57 Hydrocodone Bit/Acetaminophen 7.5/325 Mg Tablet PO 1 tab Q6HR PRN Administration Pain Amlodipine Besylate 10 mg 11/27/24 09:00 11/28/24 09:10 Amlodipine Besylate 5 Mg Tablet PO 10 mg DAILY ANGELO Administration Aspirin 81 mg 11/27/24 07:30 11/28/24 09:09 Aspirin 81 Mg Tablet. PO 81 mg DAILYWM2 ANGELO Administration Atorvastatin Calcium 40 mg 11/26/24 21:00 11/27/24 20:16 Atorvastatin Calcium 20 Mg Tablet PO 40 mg BEDTIME ANGELO Administration Dorzolamide/Timolol 1 drop 11/26/24 21:00 11/28/24 09:11 Dorzolamide Hcl/Timolol Maleat Opth 10 Ml Maria Luisa EACHEYE 1 drop BID ANGELO Administration Fluticasone Propionate 2 spray 11/27/24 09:00 11/28/24 09:10 Fluticasone Propionate 16 Gm Nasal [place] CARMELITA 2 spray DAILY ANGELO Administration Lidocaine 1 patch 11/27/24 09:00 11/28/24 09:11 Lidocaine 5% Patch TP 1 patch DAILY ANGELO Administration Methocarbamol 500 mg 11/26/24 14:36 11/26/24 22:02 Methocarbamol 500 Mg Tablet PO 500 mg TID PRN Administration Spasms Montelukast Sodium 10 mg 11/26/24 17:00 11/27/24 18:08 Montelukast Sodium 10 Mg Tablet PO 10 mg QPM ANGELO Administration Morphine Sulfate 2 mg 11/26/24 15:10 11/28/24 09:11 Morphine Sulfate 2 Mg/Ml Syringe IVP 2 mg Q6H PRN Administration MODERATE PAIN Ondansetron HCl 4 mg 11/26/24 15:10 Ondansetron Hcl/Pf 4 Mg/2 Ml Sdv IVP Q6H PRN Nausea / Vomiting Pantoprazole Sodium 40 mg 11/27/24 06:00 11/28/24 05:01 Pantoprazole Sodium 40 Mg Tablet. PO 40 mg QDAC2 ANGELO Administration Pregabalin 100 mg 11/26/24 16:00 11/28/24 09:10 Pregabalin 50 Mg Capsule PO 100 mg TID ANGELO Administration Saccharomyces Boulardii 250 mg 11/26/24 21:00 11/28/24 09:10 Saccharomyces Boulardii 250 Mg Capsule PO 250 mg BID ANGELO Administration Sertraline HCl 50 mg 11/27/24 09:00 11/28/24 09:10 Sertraline Hcl 50 Mg Tablet PO 50 mg DAILY ANGELO Administration Sodium Chloride 1 syr 11/27/24 21:00 11/28/24 05:01 0.9% Sodium Chloride 10 Ml Disp.Syrin IVF 1 syr Q8HR ANGELO Administration Plan Plan: 1. Intractable Pain secondary to R displaced proximal humerus fracture - morphine 2 mg IVP Q6H - will attempt to wean prior to discharge, norco 7.5/325 mg every 6 hours prn, robaxin 500 mg tid prn 2. R displaced proximal humerus fracture - sling, NWB, will need jamie-walker and orthopedic follow-up upon discharge, pt/ot consult 3. Leukocytosis - Resolved, likely reactive 4. HTN - chronic, continue home medications 5. GERD - chronic, continue home medications 6. R hip pain - x-rays negative DVT Prophylaxis: Ambulation Time Spent: Greater than 80 minutes spent with patient, 50% of the time spent with this patient was devoted to counseling and coordination of care. Advanced Care Plannin minutes spent discussing advance care planning. Disposition: Requiring 2 person assistance with all ADLs. Patient would benefit from SNF upon discharge. Plan to d/c to [facility] when able. Review Statement Review Statement: I have personally discussed and reviewed the patient's visit/currently labs/imaging/decision making with Dr. Johnson, my supervising attending. Greater that 50 minutes spent with patient, 50% of the time spent with this patient was devoted to counseling and coordination of care.
[2024-11-28] MEDS: NORCO 7.5-325 PO PRN (12:10)
[2024-11-29 05:40] LABS: IMMATURE GRANULOCYTE # (AUTO) 0.0 (0.0-1.0); IMMATURE GRANULOCYTE % (AUTO) 0.4 % (0.0-5.0); RDW COEFFICIENT OF VARIATION 14.1 % (11.6-14.8)
[2024-11-29 05:56] LABS: CREATININE 0.88 mg/dL (0.60-1.30)
--- NOTE | 2024-11-29 09:37 | PCM.PROG ---
Date/Time Seen Date Seen by Provider: 11/29/24 Time Seen by Provider: 08:30 Provider Provider: KEEGAN REYES, [facility]ist Group Chief Complaint Chief Complaint: FX R HUMERUS, WEAKNESS Subjective Subjective: Continues to not make effort to stand and transfer. Pain controlled with current regimen. Objective Appearance: Positive No Apparent Distress and Alert and Oriented x3 Chest/Lungs: Positive Symmetrical With Equal Breath Sounds, Clear to Auscultation Bilaterally and Good Air Movement all 4 Lung Garcia; Negative Rales, Rhonci or Wheezes Heart: Positive RRR and Pulses Normal GI/: Positive Soft, Nontender, Bowel Sounds Normal and No Distention Musculoskeletal: Positive Other (sling to R arm, mild edema and ecchymosis, neurovascularly intact) Neurological: Positive Sensation Intact, Motor intact, Reflexes Intact, Alert, Oriented and Other (profound weakness) Vital Signs Vital Signs: Vital Signs: Last 24 Hours 11/28/24 14:00 11/28/24 20:00 11/28/24 20:24 Temperature 97.2 F L 97.4 F L Temperature Source Temporal Artery Scan Temporal Artery Scan Pulse Rate 76 74 Respiratory Rate 14 16 Blood Pressure 111/56 L 133/73 Blood Pressure Mean 74 93 Blood Pressure Location Left Arm Left Arm Blood Pressure Position Supine O2 Sat by Pulse Oximetry 95 95 Oxygen Delivery Method Room Air Room Air Room Air 11/29/24 05:16 Temperature 97.4 F L Temperature Source Temporal Artery Scan Pulse Rate 72 Respiratory Rate 18 Blood Pressure 118/78 Blood Pressure Mean 91 Blood Pressure Location Left Arm Blood Pressure Position Supine O2 Sat by Pulse Oximetry 95 Oxygen Delivery Method Room Air Lab Results Lab Results: Lab Results: Last 24 Hours 11/29/24 05:19 WBC 7.99 RBC 3.75 L Hgb 11.6 L Hct 36.4 L MCV 97.1 MCH 30.9 MCHC 31.9 RDW Coeff of Manolo 14.1 Plt Count 135 L Immature Gran % (Auto) 0.4 Neut % (Auto) 50.4 Lymph % (Auto) 33.7 [place] % (Auto) 10.9 H Eos % (Auto) 4.1 Baso % (Auto) 0.5 Neut # (Auto) 4.0 Lymph # (Auto) 2.7 [place] # (Auto) 0.9 Eos # (Auto) 0.3 Baso # (Auto) 0.0 Immature Gran # (Auto) 0.0 Sodium 142.8 Potassium 3.80 Chloride 104.5 Carbon Dioxide 29.7 Anion Gap 12.40 BUN 19.6 H Creatinine 0.88 Estimated GFR (MDRD) 62.00 BUN/Creatinine Ratio 22.27 Glucose 101.9 Calcium 8.76 Total Bilirubin 0.81 AST 40.5 H ALT 22.4 Alkaline Phosphatase 81.6 Total Protein 6.45 Albumin 3.28 L Globulin 3.17 Albumin/Globulin Ratio 1.03 Additional Comments Additional Comments: I have independently reviewed and interpreted the labs/EKGs/imaging ordered during this hospital stay. I have reviewed outside records that are available in our EMR that pertain to medical stay including imaging/notes/labs from previous visits. Active Medications Active Medications: Medications Generic Name Dose Route Start Last Admin Trade Name Freq PRN Reason Stop Dose Admin Acetaminophen 650 mg 11/26/24 14:36 Acetaminophen 325 Mg Tablet PO Q4H PRN Mild Pain Hydrocodone Bitart/Acetaminophen 1 tab 11/28/24 09:50 11/29/24 08:21 Hydrocodone Bit/Acetaminophen 7.5/325 Mg Tablet PO 1 tab Q4-6H PRN Administration Pain Amlodipine Besylate 10 mg 11/27/24 09:00 11/29/24 08:13 Amlodipine Besylate 5 Mg Tablet PO 10 mg DAILY ANGELO Administration Aspirin 81 mg 11/27/24 07:30 11/29/24 08:20 Aspirin 81 Mg Tablet.Dr PO 81 mg DAILYWM2 ANGELO Administration Atorvastatin Calcium 40 mg 11/26/24 21:00 11/28/24 21:03 Atorvastatin Calcium 20 Mg Tablet PO 40 mg BEDTIME ANGELO Administration Docusate Sodium 100 mg 11/29/24 09:00 Docusate Sodium 100 Mg Capsule PO BID ANGELO Dorzolamide/Timolol 1 drop 11/26/24 21:00 11/29/24 08:15 Dorzolamide Hcl/Timolol Maleat Opth 10 Ml Maria Luisa EACHEYE 1 drop BID ANGELO Administration Fluticasone Propionate 2 spray 11/27/24 09:00 11/29/24 08:15 Fluticasone Propionate 16 Gm Nasal [place] CARMELITA 2 spray DAILY ANGELO Administration Lidocaine 1 patch 11/27/24 09:00 11/29/24 08:15 Lidocaine 5% Patch TP 1 patch DAILY ANGELO Administration Methocarbamol 500 mg 11/26/24 14:36 11/26/24 22:02 Methocarbamol 500 Mg Tablet PO 500 mg TID PRN Administration Spasms Montelukast Sodium 10 mg 11/26/24 17:00 11/28/24 18:08 Montelukast Sodium 10 Mg Tablet PO 10 mg QPM ANGELO Administration Ondansetron HCl 4 mg 11/26/24 15:10 Ondansetron Hcl/Pf 4 Mg/2 Ml Sdv IVP Q6H PRN Nausea / Vomiting Pantoprazole Sodium 40 mg 11/27/24 06:00 11/29/24 05:27 Pantoprazole Sodium 40 Mg Tablet. PO 40 mg QDAC2 ANGELO Administration Pregabalin 100 mg 11/26/24 16:00 11/29/24 08:13 Pregabalin 50 Mg Capsule PO 100 mg TID ANGELO Administration Saccharomyces Boulardii 250 mg 11/26/24 21:00 11/29/24 08:11 Saccharomyces Boulardii 250 Mg Capsule PO 250 mg BID ANGELO Administration Sertraline HCl 50 mg 11/27/24 09:00 11/29/24 08:10 Sertraline Hcl 50 Mg Tablet PO 50 mg DAILY ANGELO Administration Sodium Chloride 1 syr 11/27/24 21:00 11/29/24 05:26 0.9% Sodium Chloride 10 Ml Disp.Syrin IVF 1 syr Q8HR ANGELO Administration Plan Plan: 1. Intractable Pain secondary to R displaced proximal humerus fracture - stopped morphine yesterday - tolerating well, norco 7.5/325 mg every 4-6 hours prn, robaxin 500 mg tid prn 2. R displaced proximal humerus fracture - sling, NWB, will need jamie-walker and orthopedic follow-up upon discharge, pt/ot consult 3. Leukocytosis - Resolved, likely reactive 4. HTN - chronic, continue home medications 5. GERD - chronic, continue home medications 6. R hip pain - x-rays negative DVT Prophylaxis: Ambulation Dispo: D/c to [facility] tomorrow Review Statement Review Statement: I have personally discussed and reviewed the patient's visit/currently labs/imaging/decision making with Dr. Johnson, my supervising attending. Greater that 50 minutes spent with patient, 50% of the time spent with this patient was devoted to counseling and coordination of care.
[2024-11-29] MEDS: COLACE PO SCH (09:40)
[2024-11-30 05:32] VITALS: BP 145/63; PULSE 69; RESP 16; TEMP 97.9
[2024-11-30 05:36] LABS: IMMATURE GRANULOCYTE # (AUTO) 0.0 (0.0-1.0); IMMATURE GRANULOCYTE % (AUTO) 0.4 % (0.0-5.0); RDW COEFFICIENT OF VARIATION 14.1 % (11.6-14.8)
[2024-11-30 05:55] LABS: CREATININE 0.77 mg/dL (0.60-1.30)
--- NOTE | 2024-11-30 09:46 | DCSUM ---
Admission Date Admission Date: 11/26/24 Discharge Date Discharge Date: 11/30/24 Admission Diagnosis Admission Diagnosis: 1. Intractable Pain secondary to R displaced proximal humerus fracture 2. R displaced proximal humerus fracture 3. Leukocytosis 4. HTN 5. GERD Discharge Diagnosis Discharge Diagnosis: 1. Intractable Pain secondary to R displaced proximal humerus fracture - Resolved, tolerating well, norco 7.5/325 mg every 4-6 hours prn, robaxin 500 mg tid prn 2. R displaced proximal humerus fracture - sling, NWB, jamie-walker for ambulation, continue pt/ot, follow-up with ortho 3. Leukocytosis - Resolved, likely reactive 4. HTN - chronic, stable 5. GERD - chronic, stable 6. R hip pain - x-rays negative Hospital Provider Hospital [facility] Primary Care Physician Primary Care Physician: CLINT POST Summary of History and Physical Summary of History and Physical: 79 yo female with pmh of HTN, colostomy, stroke, and GERD presented to the ER from [facility] following a fall. States she was trying to sit down in her chair and nearly missed. Attempted to slide herself into the floor and landed on her R side. C/o of chronic back pain and R shoulder pain. Found to have displaced proximal right humerus fracture. White count mildly elevated. Rest of labs unremarkable at this time. Awaiting UA. Denies any other complaints other than pain to the R arm. Admitted to Med/Surg Observation. Hospital Course Subjective: During stay, patient's intractable pain due to R displaced proximal humerus fracture was treated with morphine, norco, and robaxin. Able to be weaned off of morphine the last 2 days and has tolerated oral norco and robaxin well. Patient is to remain NWB to R humerus in sling. Recommend jamie-walker for ambulation. Continue pt/ot. Follow-up with ortho outpatient. Labs remained stable. VSS. Patient prior living was at assisted living. Unsafe to discharge due to max assist x 2 with all ADLs. D/c to [facility] today. Appearance: Pleasant, No Apparent Distress and Alert HEENT: MMM, Supple and No JVD CVS: No Murmur, No Rubs and No Gallop Abdomen: Soft, Non-Tender and No Distention Respiratory: No Dyspnea Extremities: Other (mild edema and ecchymosis to R upper arm, neurovascularly intact) Vital Signs: Most Recent Vital Signs Temperature 97.9 F 11/30/24 05:31 Temperature Source Temporal Artery Scan 11/30/24 05:31 Temperature Source Infrared 11/26/24 12:35 Pulse Rate 69 11/30/24 05:31 Respiratory Rate 16 11/30/24 05:31 Blood Pressure 145/63 H 11/30/24 05:31 Blood Pressure Mean 90 11/30/24 05:31 Blood Pressure Left Arm 199/91 11/26/24 14:51 Blood Pressure Location Left Arm 11/30/24 05:31 Blood Pressure Position Supine 11/30/24 05:31 O2 Sat by Pulse Oximetry 95 11/30/24 05:31 Oxygen Delivery Method Room Air 11/30/24 05:31 Height 5 ft 4 in 11/26/24 14:51 Weight 55.8 kg 11/26/24 14:51 Telemetry Heart Rate 88 11/13/23 13:00 Imaging: EXAM: CHEST RADIOGRAPH TECHNIQUE: Single frontal chest radiograph. HISTORY: Chest pain and shortness of breath. COMPARISON: 11/11/2023 chest x-ray. FINDINGS: Lungs are hyperinflated and hyperlucent. Biapical pleural thickening and/or scar. No nodule or mass rather consolidation. No free air below the diaphragm. Heart is upper limits of normal and similar. Mediastinum is normal and the airway is patent and midline. Overlapping structures upper lung on the left. There is no pleural effusion. There is no pneumothorax. No significant acute bony abnormality is seen. IMPRESSION: 1. Lungs are hyperinflated and hyperlucent but appear clear with mild chronic changes otherwise. Heart is at least upper limits of normal in size and similar. No other acute finding. Details, as above. EXAM: SINGLE VIEW OF THE RIGHT SHOULDER HISTORY: Fall. COMPARISON: Chest x-ray 11/11/2023 FINDINGS: There is a displaced fracture of the proximal right humerus which is poorly visualized on single frontal view. The scapula and clavicle are normal. The soft tissues are normal. IMPRESSION: Displaced fracture of the right humerus. If further evaluation is clinically indicated, CT is recommended. EXAM: XR RIGHT ELBOW. HISTORY: Fall, pain. TECHNIQUE: 2 views. Frontal and lateral. COMPARISON: None. FINDINGS: Bones: No acute fracture. Joints: Normal alignment. Joint spaces are maintained. No effusion. Soft tissues: Unremarkable. Other: None. IMPRESSION: 1. No acute findings. Lab Results Last 24 Hours: 11/30/24 05:11 WBC 7.90 RBC 3.83 L Hgb 11.8 L Hct 37.8 MCV 98.7 MCH 30.8 MCHC 31.2 L RDW Coeff of Manolo 14.1 Plt Count 150 Immature Gran % (Auto) 0.4 Neut % (Auto) 62.1 Lymph % (Auto) 24.6 Cecil % (Auto) 9.0 Eos % (Auto) 3.3 Baso % (Auto) 0.6 Neut # (Auto) 4.9 Lymph # (Auto) 1.9 Cecil # (Auto) 0.7 Eos # (Auto) 0.3 Baso # (Auto) 0.1 Immature Gran # (Auto) 0.0 Sodium 141.1 Potassium 3.89 Chloride 103.9 Carbon Dioxide 29.1 Anion Gap 11.99 BUN 18.8 H Creatinine 0.77 Estimated GFR (MDRD) 72.00 BUN/Creatinine Ratio 24.41 Glucose 104.4 Calcium 8.96 Total Bilirubin 0.90 AST 39.7 H ALT 23.5 Alkaline Phosphatase 85.1 Total Protein 6.64 Albumin 3.52 Globulin 3.12 Albumin/Globulin Ratio 1.12 Discharge Instructions Discharge Planning: Discharge Planning > 40 minutes If patient is discharged with left ventricular systolic dysfunction: no Discharged with a beta alla? [] If no, why not? [] Discharged with an joselin/arb? [] If no, why not? [] Discharge Medications: Medications at Discharge (Home Meds & RX) Bifidobacterium longum 10 million cell capsule (Align (B.longum)) 10,000,000 cell PO QDAY 10/04/24 acetaminophen 500 mg capsule 500 mg PO Q6H PRN fever or pain 10/04/24 aspirin 81 mg tablet,delayed release (Adult Aspirin Regimen) 81 mg PO QDAY 10/04/24 atorvastatin 40 mg tablet 40 mg PO QHS 10/04/24 esomeprazole magnesium 40 mg capsule,delayed release 40 mg PO QDAY 10/04/24 fluticasone propionate 50 mcg/actuation nasal spray,suspension (Children's Flonase Allergy Relief) 2 spray intranasal QDAY 10/04/24 montelukast 10 mg tablet 10 mg PO QHS 10/04/24 hlbaurzy-domh-acbl 8 mg-folic 400 mcg-K 50 mcg-lutein 300 mcg tablet (Centrum Silver Women) 1 tab PO QDAY 10/04/24 naloxone 4 mg/actuation nasal spray 1 spray intranasal Q2-3M PRN opioid overdose 10/04/24 sertraline 50 mg tablet 50 mg PO QDAY 10/04/24 amlodipine 10 mg tablet 10 mg PO QDAY 10/20/24 lidocaine 5 % topical patch 1 patch topical QDAY #30 ea 10/20/24 hydrocodone 7.5 mg-acetaminophen 325 mg tablet 1 tab PO Q8H PRN pain #90 tabs 11/10/24 pregabalin 100 mg capsule 100 mg PO TID #90 caps 11/20/24 dorzolamide 22.3 mg-timolol 6.8 mg/mL eye drops 1 drp ophthalmic (eye) ONCE 11/26/24 docusate sodium 100 mg capsule 100 mg PO BID #60 caps 11/30/24 hydrocodone 7.5 mg-acetaminophen 325 mg tablet 1 tab PO Q4-6H PRN pain #120 tabs 11/30/24 methocarbamol 500 mg tablet 500 mg PO TID PRN spasms #90 tabs 11/30/24 Discharge Plan Discharge Discharge Orders: Discharge Patient (ONCE); Ordered 11/30/24 Ordered By: SPENCER VUONG Activity Restrictions/Additional Instructions: Diagnosis: R proximal humerus fracture Diet: Regular Activity: NWB to R arm, may ambulate as tolerated, PT/OT Medications: * Candia 7.5/325 every 4-6 hours as needed for pain * Robaxin 500 mg may take 3 times as needed for spasms * Colace 100 mg twice a day Follow-up with PCP It is important for you to keep your arm in the sling at all times. This will aid in the alignment of the fracture. Follow-up with orthopedics. Instructions: Proximal Humerus Fracture (ED) Patient Disposition: TRANSFER SNF Prescriptions: New docusate sodium 100 mg Capsule 100 mg PO BID Qty: 60 0RF methocarbamol 500 mg Tablet 500 mg PO TID PRN (Reason: spasms) Qty: 90 0RF hydrocodone-acetaminophen 7.5-325 mg Tablet 1 tab PO Q4-6H PRN (Reason: pain) Qty: 120 0RF Continued acetaminophen 500 mg capsule 500 mg PO Q6H PRN (Reason: fever or pain) aspirin [Adult Aspirin Regimen] 81 mg tablet,delayed release (DR/EC) 81 mg PO QDAY atorvastatin 40 mg tablet 40 mg PO QHS esomeprazole magnesium 40 mg capsule,delayed release(DR/EC) 40 mg PO QDAY fluticasone propionate [Children's Flonase Allergy Rlf] 50 mcg/actuation spray,suspension 2 spray intranasal QDAY Rx Instructions: administer into each nostril montelukast 10 mg tablet 10 mg PO QHS Centrum Silver Women 8 mg iron-400 mcg-50 mcg tablet 1 tab PO QDAY naloxone 4 mg/actuation spray,non-aerosol 1 spray intranasal Q2-3M PRN (Reason: opioid overdose) Rx Instructions: spray 1 dose into ONE nostril; alternate nostrils w each dose until help arrives Align (Rad) 10 million cell capsule 10,000,000 cell PO QDAY sertraline 50 mg tablet 50 mg PO QDAY pregabalin 100 mg capsule 100 mg PO TID Qty: 90 0RF dorzolamide-timolol 22.3-6.8 mg/mL drops 1 drp ophthalmic (eye) ONCE amlodipine 10 mg tablet 10 mg PO QDAY lidocaine 5 % adhesive patch,medicated 1 patch topical QDAY Qty: 30 3RF Rx Instructions: leave on most painful area for up to 12 hrs No Action hydrocodone-acetaminophen 7.5-325 mg tablet 1 tab PO Q8H PRN (Reason: pain) Qty: 90 0RF Did you review [place] RN [employer] for ALL controlled substances?: Yes Discussed opioids are addictive and Narcan is available by prescription or from pharmacy.: No Condition: Stable Referrals: JUDE MARRERO [REFERRING, UNKNOWN] - 12/02/24 10:30 am
== END 2024-11-30 15:55 | DRG 563 ==
LOC: MEDSURG B 12:28 → ED 12:28 → MEDSURG B 14:58
PROVIDERS: ADMIT Hospitalist; ATTEND Nurse Practitioner Family
DX: K21.9 Gastro-esophageal reflux disease without esophagitis; M25.551 Pain in right hip; D72.829 Elevated white blood cell count, unspecified; I10 Essential (primary) hypertension; S42.291A Other displaced fracture of upper end of right humerus, initial encounter for closed fracture; W18.30XA Fall on same level, unspecified, initial encounter